=== PATIENT | male | born 1975 | race Caucasian/White ===

== ENCOUNTER 2017-05-11 21:40 | Emergency (ER) | payer MEDICAID ==
[~2017-05-11] VITALS: Ht 182.9 cm; Wt 83.9 kg
[~2017-05-11 21:40] MED LIST: KEFLEX 500MG.500 MG PO; MEDROL 4MG. DOSE4 MG PO; PERCOCET 5/3251 EACH PO; ZANTAC 300300 M1 PO
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
[2017-05-11] MEDS ORDERED: Mobic7.5 MG PO (23:28)
[2017-05-11 23:43] VITALS: BP 196/82
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
== END 2017-05-11 23:44 | disposition home or self-care (01) ==
LOC: ER 21:40
DX: S20.211A Contusion of right front wall of thorax, initial encounter (principal); S73.102A Unspecified sprain of left hip, initial encounter; Z72.0 Tobacco use; Y04.0XXA Assault by unarmed brawl or fight, initial encounter

== ENCOUNTER 2017-05-27 00:23 | Emergency (ER) | payer MEDICAID ==
[~2017-05-27] VITALS: Ht 182.9 cm; Wt 81.6 kg
[~2017-05-27 00:23] MED LIST changes: +Mobic7.5 MG PO
[2017-05-27 00:51] LABS: HEMOGLOBIN 15.9 g/dL (14.1-18.0)
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
[2017-05-27 02:37] LABS: URINE BILIRUBIN - DIPSTICK NEGATIVE (NEG); URINE BLOOD NEGATIVE (NEG)
[2017-05-27 02:49] LABS: AMPHETAMINES/METAMPHETAMINES NEGATIVE ng/mL (<1000)
[2017-05-27 02:59] LABS: NEUTROPHILS 76 % (42-76)
[2017-05-27] MEDS ORDERED: KEFLEX 500MG.500 MG PO (03:20)
[2017-05-27 03:36] VITALS: BP 151/90
--- NOTE | 2017-05-27 05:19 | RADIOLOGY REPORT PS360 ---
HIP RT 2-3V W/PELVIS IF PERFOR HISTORY: C/O RIGHT HIP PAIN ORDERING PHYSICIAN: Suma Sharif MD PATIENT AGE: 41 years COMPARISON: 05/11/2017 FINDINGS: No fracture or dislocation is evident. No significant degenerative change. No lytic or blastic change. Unremarkable soft tissues IMPRESSION: Negative hip
--- NOTE | 2017-05-27 05:21 | RADIOLOGY REPORT PS360 ---
CHEST-AP VIEW ONLY HISTORY: Overdose, chest pain C/O RIGHT HIP PAIN ORDERING PHYSICIAN: Suma Sharif MD PATIENT AGE: 41 years COMPARISON: 05/11/2017 FINDINGS: There are low lung volumes with mild prominence of the cardiac silhouette and vascular crowding. No lobar consolidation or collapse. No evidence of pneumothorax. No acute bony anomalies. IMPRESSION: Hypoventilation, no acute finding
--- NOTE | 2017-05-27 05:38 | RADIOLOGY REPORT PS360 ---
CT HEAD W/O CONTRAST HISTORY: HEADACHE, SWELLING ABOVE RIGHT EYE ORDERING PHYSICIAN: Suma Sharif MD PATIENT AGE: 41 years COMPARISON: None TECHNIQUE: Axial images obtained without contrast. Brain and bone windows reviewed. FINDINGS: No midline shift, mass effect, intracranial hemorrhage, hydrocephalus, or extra-axial fluid collection is evident. There is mild right periorbital soft tissue swelling The calvarium has an unremarkable appearance. No mastoid effusion. The visualized paranasal sinuses are unremarkable. IMPRESSION: 1. No acute finding. 2. Mild right periorbital soft tissue swelling
--- NOTE | 2017-05-27 05:42 | RADIOLOGY REPORT PS360 ---
CT CERVICAL SPINE W/O CONT INDICATION: Neck pain NECK PAIN ORDERING PHYSICIAN: Suma Sharfi MD PATIENT AGE: 41 years COMPARISON: None TECHNIQUE: Axial images are obtained without contrast. Sagittal and coronal reformatted images are reviewed as well. FINDINGS: There is normal alignment. No fracture or dislocation. There is straightening of the cervical lordosis. Degenerative disc disease with minimal endplate osteophytes and mild left foraminal narrowing C5-C6. Degenerative disc disease with small endplate osteophytes at canal stenosis C6-C7 with moderate left-sided foraminal narrowing from uncovertebral hypertrophy. Lung apices are clear. Scattered small lymph nodes are present in the neck IMPRESSION: 1. No acute fracture. 2. Cervical spondylosis with degenerative disc disease C5-C6 and C6-C7 and left-sided foraminal narrowing with canal stenosis at C6-C7
--- NOTE | 2017-05-27 05:46 | RADIOLOGY REPORT PS360 ---
CT CHEST W/O CONTRAST HISTORY: Chest pain, abnormal radiograph PAIN ORDERING PHYSICIAN: Suma Sharif MD PATIENT AGE: 41 years TECHNIQUE: Helical acquisition obtained without contrast. Axial, sagittal, and coronal reformatted images are generated and reviewed. COMPARISON: Radiograph same day FINDINGS: No obvious mediastinal mass or hilar adenopathy. Normal heart size. No obvious pericardial effusion. There is gynecomastia. Calcified granuloma is present in the left lower lobe. Lungs are clear otherwise. No acute bony anomalies. Upper abdominal images are unremarkable. IMPRESSION: No acute findings. Negative unenhanced CT chest Old granulomatous disease
--- NOTE | 2017-05-27 05:49 | RADIOLOGY REPORT PS360 ---
CT EXT.LOWER-RT-W/O CONTRAST INDICATION: Right hip pain PAIN ORDERING PHYSICIAN: Suma Sharif MD PATIENT AGE: 41 years COMPARISON: None TECHNIQUE: Axial images are obtained without contrast. Sagittal and coronal reformatted images are reviewed as well. FINDINGS: No fracture or dislocation. No soft tissue mass or abscess. Dental note is made of a small cortical defect involving the right femoral neck anteriorly at the subcapital region. Minimal subcortical cystic change noted at the inferior aspect of the SI joint anteriorly. IMPRESSION: No acute finding. 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
[2017-05-28 10:37] LABS: HBsAg Screen Negative (Negative); Hep A Ab, IgM Negative (Negative); Hep B Core Ab, IgM Negative (Negative); Hep C Virus Ab <0.1 (0.0-0.9)
== END 2017-05-27 03:37 | disposition home or self-care (01) ==
LOC: ER 00:23
PROVIDERS: Emergency Medicine
DX: F11.90 Opioid use, unspecified, uncomplicated (principal); J40 Bronchitis, not specified as acute or chronic; F14.10 Cocaine abuse, uncomplicated; M25.551 Pain in right hip; D72.829 Elevated white blood cell count, unspecified; F17.210 Nicotine dependence, cigarettes, uncomplicated; S50.312A Abrasion of left elbow, initial encounter; X58.XXXA Exposure to other specified factors, initial encounter
CPT/HCPCS: J2310

== ENCOUNTER 2017-06-21 05:50 | Emergency (ER) | payer OTHER ==
[~2017-06-21] VITALS: Ht 182.9 cm; Wt 83.9 kg
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
[2017-06-21 08:57] LABS: LYMPH # 1.8 K/mm3 (0.7-4.5); LYMPH % 8.9 % (10-50)
[2017-06-21 09:08] LABS: HEMOGLOBIN 13.8 g/dL (14.1-18.0)
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
[2017-06-21 09:31] LABS: NEUTROPHILS 77 % (42-76)
[2017-06-21 09:39] VITALS: BP 142/89
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
--- OUTSIDE RECORDS SUMMARY | 2017-07-01 02:35 | External Medical Summary Rpt | CCD ---
Author Author , ALEXANDER Organization ALEXANDER Address Unknown Phone [email or web address] Care Team Providers Care Repairer Pump Name Role Phone NIEVES ASHLY, NIEVES Unavailable Unavailable [facility] Unavailable Unavailable ASSOC[facility]ATES, P[facility], [facility] ARNOLD, ARNOLD Unavailable Unavailable ARNOLD, ARNOLD Unavailable Unavailable ARNOLD LA, ARNOLD Unavailable Unavailable LA ARNOLD LA, ARNOLD Unavailable Unavailable LA GRIFFIN ALL, GRIFFIN ALL Unavailable Unavailable [facility] Unavailable Unavailable [facility] Unavailable Unavailable [facility] Unavailable Unavailable [facility], [facility] SYBIL GARRET, Unavailable Unavailable SYBIL GARRET [facility], Unavailable Unavailable [facility] BRIANDA ADR, BRIANDA Unavailable Unavailable ADR [facility] Unavailable Unavailable [place], [facility] [place] RAJAT, RAJAT Unavailable Unavailable RAJAT CAROLYNE, RAJAT Unavailable Unavailable [facility] Un[facility] Unavailable INC, [facility], Unavailable Unavailable [facility] Un[facility] Unavailable [facility], [facility] Un[facility]available [facility], [facility] BEASLEY, BEASLEY Unavailable Unavailable [facility] Unavailable Unavailable SERVICES, [facility] Unavailable Unavailable [facility], [facility] PSC [facility], Unavailable Unavailable PLLC, [facility], Unavailable Unavailable [facility], Unavailable Unavailable [facility] ASHLEY, ASHLEY Unavailable Unavailable [facility] Unavailable Unavailable [id number] [address] [id number], [facility] [id number] # [id number] SADEK MOH, SADEK MOH Unavailable Unavailable SCIFRES ANG, SCIFRES Unavailable Unavailable ANG SANTOS BENY, SANTOS Unavailable Unavailable [facility], Unavailable Unavailable [facility] MURILLO DON, Unavailable Unavailable MURILLO DON MURILLO DON, Unavailable Unavailable MURILLO DON MURILLO, DON R, Unavailable Unavailable MURILLO, DON R CHOW SCO, CHOW Unavailable Unavailable SCO STRUP BRITNI, STRUP BRITNI Unavailable Unavailable HUSSEIN PHI, HUSSEIN PHI Unavailable Unavailable [facility], Unavailable Unavailable [facility] SHA, WELLS SHA Unavailable Unavailable WHITE TONE, WHITE TONE Unavailable Unavailable Purpose Continuity of Care Document - 03-12-2010 through 2016 Problems Code Diagnosis DOS Provider Status [id number] CONTUSION 05-11-2017 Y[facility]IRA RT FRONT PH[facility]ANS, WALL THORAX PLLC INITIAL ENCOUNTER [id number] UNSPECIFIED 05-11-2017 [facility] SPRAIN OF PHYSICIANS, LEFT HIP PLLC INITIAL ENCOUNTER D2230 MELANOCYTIC 01-28-2017 [facility] NEVI OF PHYSICIANS UNSPECIFIED GROUP PART OF FACE D0330 MELANOMA IN 12-07-2016 ARNOLD SITU OF UNSPECIFIED PART OF FACE G8929 OTHER 11-05-2016 [facility] CHRONIC PHYSICIANS PAIN GROUP [id number] PRIMARY 11-05-2016 [facility] OSTEOARTHRI PHYSICIANS TIS GROUP UNSPECIFIED SHOULDER [id number] PAIN IN 11-05-2016 [facility] LEFT PHYSICIANS SHOULDER GROUP H06694 UNS ROT 11-05-2016 [facility] CUFF PHYSICIANS TEAR/RUPT GROUP LT SHLDR NOT SPEC TRAUMAT [id number] UNS INJURY 11-05-2016 [facility] LT SHOULDER PHYSICIANS UPPER ARM GROUP INITIAL ENCNTR J44993 PAIN IN 10-13-2016 ARNOLD UNSPECIFIED SHOULDER L0390 CELLULITIS 08-25-2016 ARNOLD LA UNSPECIFIED [id number] INSECT BITE 05-21-2016 [facility], NONVENOMOUS PLLC RT HAND INITIAL ENC [id number] TOXIC 05-21-2016 [facility]PS INC ACCIDENTAL INITIAL ENC 13497 PAIN IN 05-29-2014 [facility] JOINT, LOWER LEG 18555 PAIN IN 05-29-2014 [place] [facility], MEDICAL ANKLE AND IMAGING ASS FOOT 96032 UNSPECIFIED 05-29-2014 [facility] SITE OF N EMERGENCY ANKLE PHYS SPRAIN AND STRAIN E8888 OTHER FALL 05-29-2014 [facility] V700 ROUTINE 01-23-2013 [facility] GENERAL PHYSICIANS MEDICAL GROUP EXAM@HEALTH CARE FACL V5832 ENCOUNTER 12-05-2012 [facility] FOR REMOVAL DON OF SUTURES 2165 BENIGN 11-23-2012 [facility] NEOPLASM OF DON SKIN OF TRUNK EXCEPT SCROTUM 2298 BENIGN 11-23-2012 [facility] OTHER SPECIFIED SITES 2399 NEOPLASM OF 11-23-2012 [facility] UNSPECIFIED NATURE SITE UNSPECIFIED 2388 NEOPLASM 10-12-2012 [facility] UNCERTAIN DON BEHAVIOR OTHER SPEC SITES 40393 CONDYLOMA 06-29-2011 [facility] 6089 UNSPECIFIED 06-29-2011 NEW DISORDER [place] OF MALE CLINIC [facility] GENITAL ORGANS 53195 ABDOMINAL 06-29-2011 NEW PAIN, [place] UNSPECIFIED CLINIC [facility] SITE 2382 NEOPLASM OF 06-05-2011 NEW UNCERTAIN [place] BEHAVIOR OF CLINIC [facility] SKIN 7099 UNSPECIFIED 06-05-2011 [facility] DISORDER [facility], OF [facility] SKIN&SUBCUT ANEOUS TISSUE 15914 OTHER 05-16-2011 [facility] SPECIFIED DON DISORDER OF MALE GENITAL ORGANS V6759 OTHER 04-06-2011 [facility] EXAMINATION OTHER 91381 UNSPECIFIED 01-29-2011 [facility] ORCHITIS SERV AND FOUND[facility] EPIDIDYMITI S 20042 EDEMA OF 01-15-2011 [place] [facility] MALE SERV GENITAL [facility]OUND[facility] ORGANS 7899 OTHER 01-07-2011 [place] [facility] SYMPTOMS SERV INVOLVING [facility]OUNDAT[facility] ABDOMEN AND PELVIS 20084 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-2010 [place] [facility] LUMBAR/LUMB SERV OSACRAL FOUNDATIO INTERVERTEB RAL DISC 3671 MYOPIA 11-01-2010 [facility] 70075 PAIN IN 09-26-2010 [place] [facility] PELVIC IMAGING ASS REGION AND THIGH 7242 LUMBAGO 09-26-2010 [facility] INC 76859 ABDOMINAL 09-26-2010 [facility] PAIN RIGHT [facility] LOWER INC QUADRANT 7295 PAIN IN 09-09-2010 [place] SOFT MEDICAL TISSUES OF IMAGING ASS LIMB V2509 OTH GENERAL 09-02-2010 [facility] CNSL&ADVICE PSC CONTRACEPT MANAGEMENT 7231 CERVICALGIA 08-08-2010 [facility] 6010 ACUTE 08-06-2010 [place] PROSTATITIS [place] 82571 PAIN IN 08-06-2010 [facility] JOINT, DON SHOULDER REGION 7245 UNSPECIFIED 08-06-2010 [facility] BACKACHE DON 9104 E 05-11-2010 [facility] NCK[facility]SCL[facility] NO [facility] EYE INSECT INC BITE NONVNOM W/O INF 9105 [facility] 05-11-2010 [facility] EMERGENCY NO EYE SERVICES INSECT BITE NONVENOM INF Medications Na ND Rx Da Fi Fi Am Da Di Ph RX Ph St me C No te ll ll ou ys ag ar # ys at rm s nt no ma ic us Or Da si cy ia de te s n re d ME 61 08 09 10 10 00 EA Ac LO 44 -2 -[address] ti XI 20 3- 2- 00 00 SI ve CA 12 20 20 49 DE M 60 17 17 88 7. 1 95 PH 5 AR MG MA CY TA BL OF ET CY NT HI AN A IN C CE 65 12 01 40 10 00 EA Ac PH 86 -0 -[address] ti AL 20 6- 9- 00 00 SI ve EX 01 20 20 46 DE IN 90 16 17 79 5 22 PH 50 AR 0 MA MG CY CA OF PS CY UL NT E HI AN A IN C 00 09 09 0 24 6 EA 24 SL Ac 59 -1 -[address] 12 AB ti 10 6- 6- 00 SI 85 AU ve 38 20 20 DE GH 50 11 11 1 PH TH AR OM MA CY K OF CY NT HI AN A NA 00 09 09 2 60 30 EA 23 SL Ac BU 18 -0 -[address] 98 AB ti ME 50 6- 6- 00 SI 50 AU ve TO 14 20 20 DE GH NE 50 11 11 1 PH JR 50 AR 0 MA TH MG CY OM TA OF K BL ET CY NT HI AN A ME 64 05 07 1 90 30 EA 22 VE Ac TA 72 -1 -[address] 52 NK ti XA 00 3- 5- 00 SI 17 AT ve LO 32 20 20 DE ES NE 11 11 11 H 0 PH RA 80 AR MA 0 MA KR MG CY IS HN TA OF A BL ET CY NT HI AN A 00 05 07 1 30 30 EA 22 VE Ac 37 -1 -[address] 52 NK ti 81 3- 5- 00 SI 18 AT ve 06 20 20 DE ES 60 11 11 H 1 PH RA AR MA MA KR CY IS HN OF A CY NT HI AN A CY 00 04 06 1 30 10 EA 22 VE Ac CL 37 -2 -[address] 33 NK ti OB 80 8- 6- 00 SI 73 AT ve EN 75 20 20 DE ES ZA 11 11 11 H TN 0 PH RA IN AR MA E MA KR 10 CY IS HN MG OF A TA CY BL NT ET HI AN A TR 65 05 05 1 80 20 EA 22 No Ac AM 16 -1 -[address] 52 t ti AD 20 3- 3- 00 SI 20 Av ve OL 62 20 20 DE ai 71 11 11 la HC 1 PH bl L AR e 50 MA CY MG OF TA BL CY ET NT HI AN A ME 64 05 05 1 90 30 EA 22 VE Ac TA 72 -1 -[address] 52 NK ti XA 00 3- 3- 00 SI 17 AT ve LO 32 20 20 DE ES NE 11 11 11 H 0 PH RA 80 AR MA 0 MA KR MG CY IS HN TA OF A BL ET CY NT HI AN A 00 05 05 1 30 30 EA 22 VE Ac 37 -1 -[address] 52 NK ti 81 3- 3- 00 SI 18 AT ve 06 20 20 DE ES 60 11 11 H 1 PH RA AR MA MA KR CY IS HN OF A CY NT HI AN A TR 65 04 04 0 80 10 EA 22 VE Ac AM 16 -2 -[address] 33 NK ti AD 20 8- 0- 00 SI 72 AT ve OL 62 20 20 DE ES 71 11 11 H HC 1 PH RA L AR MA 50 MA KR CY IS MG HN OF A TA BL CY ET NT HI AN A CY 00 04 04 1 30 10 EA 22 VE Ac CL 37 -2 -[address] 33 NK ti OB 80 8- 0- 00 SI 73 AT ve EN 75 20 20 DE ES ZA 11 11 11 H TN 0 PH RA IN AR MA E MA KR 10 CY IS HN MG OF A TA CY BL NT ET HI AN A 00 04 04 0 30 30 EA 22 VE Ac 37 -2 -[address] 33 NK ti 81 8- 0- 00 SI 74 AT ve 08 20 20 DE ES 90 11 11 H 1 PH RA AR MA MA KR CY IS HN OF A CY NT HI AN A BOUDREAUX 53 04 04 0 42 21 EA 22 VE Ac LF 74 -2 -[address] 19 NK ti AM 60 0- 0- 00 SI 42 AT ve ET 27 20 20 DE ES HO 20 11 11 H XA 5 PH RA ZO AR MA LE MA KR -T CY IS MP HN OF A DS CY TA NT BL HI ET AN A BA 16 04 04 1 60 30 EA 22 VE Ac CL 71 -2 -[address] 19 NK ti OF 40 0- 0- 00 SI 43 AT ve EN 07 20 20 DE ES 10 11 11 H 10 6 PH RA AR MA MG MA KR CY IS TA HN BL OF A ET CY NT HI AN A TR 65 04 04 1 60 15 EA 22 VE Ac AM 16 -2 -[address] 19 NK ti AD 20 0- 0- 00 SI 44 AT ve OL 62 20 20 DE ES 71 11 11 H HC 1 PH RA L AR MA 50 MA KR CY IS MG HN OF A TA BL CY ET NT HI AN A 00 03 03 [address] Ac 59 -2 -[address] 87 EP ti 10 8- 8- 00 SI 53 HE ve 38 20 20 DE NS 50 11 11 1 PH KE AR MA N CY C OF CY NT HI AN A AM 00 03 03 0 [address] Ac OX 09 -2 -[address] 87 EP ti -C 32 8- 8- 00 SI 54 HE ve LA 27 20 20 DE NS V 53 11 11 87 4 PH KE 5- AR 12 MA N 5 CY C MG OF TA BL CY ET NT HI AN A AM 00 03 03 0 30 10 EA 21 No Ac OX 78 -2 -[address] 78 t ti IC 12 1- - 00 SI 08 Av ve IL 61 20 20 DE ai LI 30 11 11 la N 5 PH bl 50 AR e 0 MA MG CY CA OF PS UL CY E NT HI AN A GA 16 02 02 3 90 30 EA 21 TI Ac BA 71 -1 -[address] 30 BB ti PE 40 8- 8- 00 SI 68 S ve NT 66 20 20 DE PH IN 20 11 11 IL 1 PH LI 30 AR P 0 MA A MG CY CA OF PS UL CY E NT HI AN A CY 00 01 02 1 90 30 EA 20 AD Ac CL 37 -1 -[address] 86 KI ti OB 80 8- 8- 00 SI 26 NS ve EN 75 20 20 DE ZA 11 11 11 TI TN 0 PH MO IN AR TH E MA Y 10 CY D MG OF TA CY BL NT ET HI AN A CY 00 01 01 1 90 30 EA 20 AD Ac CL 37 -1 -[address] 86 KI ti OB 80 8- 8- 00 SI 26 NS ve EN 75 20 20 DE ZA 11 11 11 TI TN 0 PH MO IN AR TH E MA Y 10 CY D MG OF TA CY BL NT ET HI AN A 00 01 01 0 49 12 EA 20 AD Ac 59 -0 -[address] 66 KI ti 10 4- 4- 00 SI 94 NS ve 38 20 20 DE 50 11 11 TI 1 PH MO AR TH MA Y CY D OF CY NT HI AN A NA 00 12 12 1 60 30 EA 20 AD Ac BU 18 -1 -[address] 39 KI ti ME 50 4- 4- 00 SI 39 NS ve TO 14 20 20 DE NE 50 10 10 TI 1 PH MO 50 AR TH 0 MA Y MG CY D TA OF BL ET CY NT HI AN A 00 12 12 0 20 5 EA 20 AD Ac 59 -1 -[address] 39 KI ti 10 4- 4- 00 SI 40 NS ve 38 20 20 DE 50 10 10 TI 1 PH MO AR TH MA Y CY D OF CY NT HI AN A TR 65 11 11 [address] Ac AM 16 -1 -[address] 06 EP ti AD 20 9- 9- 00 SI 05 HE ve OL 62 20 20 DE NS 71 10 10 HC 1 PH DO L AR N 50 MA R CY MG OF TA BL CY ET NT HI AN A BOUDREAUX 53 11 11 [address] Ac LF 74 -1 -[address] 03 EP ti AM 60 7- 7- 00 SI 58 HE ve ET 27 20 20 DE NS HO 20 10 10 XA 5 PH DO ZO AR N LE MA R -T CY MP OF DS CY TA NT BL HI ET AN A IB 53 11 11 0 [address] Ac UP 74 -1 -[address] 03 EP ti RO 60 7- 7- 00 SI 59 HE ve FE 46 20 20 DE NS N 50 10 10 60 5 PH DO 0 AR N MG MA R CY TA BL OF ET CY NT HI AN A ME 00 08 08 0 21 6 EA 18 GA Ac TH 78 -2 -[address] 81 IN ti YL 15 3- 3- 00 SI 72 EY ve TN 02 20 20 DE ED 20 10 10 VA NI 7 PH CH SO AR AE LO MA L NE CY S 4 OF MG CY DO NT SE HI PK AN A CE 00 08 08 0 21 7 EA 18 GA Ac PH 09 -2 -[address] 81 IN ti AL 33 3- 3- 00 SI 73 EY ve EX 14 20 20 DE IN 70 10 10 VA 5 PH CH 50 AR AE 0 MA L MG CY S CA OF PS UL CY E NT HI AN A BOUDREAUX 53 08 08 [address] Ac LF 74 -0 -[address] 62 EP ti AM 60 6- 6- 00 SI 10 HE ve ET 27 20 20 DE NS HO 20 10 10 XA 5 PH DO ZO AR N LE MA R -T CY MP OF DS CY TA NT BL HI ET AN A NA 00 06 06 3 [address] Ac TN 09 -2 -2 .0 TE 91 EP ti OX 30 3- 3- 00 87 HE ve EN 14 20 20 AI NS 90 10 10 D 50 1 PH DO 0 AR N MG MA R CY TA BL 03 ET 93 8 # 03 93 CI 65 06 [address] Ac TN 86 -2 -2 .0 TE 91 EP ti OF 20 3 88 HE ve LO 07 20 20 AI NS XA 70 10 10 D CI 1 PH DO N AR N HC MA R L CY 50 0 03 MG 93 8 TA # B 03 93 Procedures Procedure DOS Code Location Performer Comment RADEX 84622 [place] GRIFFIN ALL SHOULDER 6 MEDICAL COMPLETE IMAGING MINIMUM 2 ASS VIEWS THERAPEUT 84209 [facility] MUELLER IC 6 [facility] PROPHYLAC INC INC TIC/DX INJECTION SUBQ/IM CRTCHS E0114 [facility] UNDARM 4 OTH THAN WOOD PAIR PAD TIP&HNDGR IP ANKLE L4350 [facility] CONTROL 4 ORTHOSIS STIRRUP STYL RIGID PREFAB RADEX 58107 [place] SYBIL ANKLE 4 MEDICAL GARRET COMPLETE IMAGING MINIMUM 3 [place] [address] [facility] SURG 3 DIAGNOSTI DIAGNOSTI PATHOLOGY CS GROSS&CAROLYNE ROSCOPIC EXAM EXC B9 16404 [facility] MURILLO LESION 3 DON DON MRGN XCP SK TG T/A/L 0.5 CM/< URNLS DIP 34161 [place] 1 [facility] STICK/TAB CLINIC LET P[place] [address] [place] SUR[facility] 1 [place] [facility] PATHOLOGY CLINIC [facility] GROSS&CAROLYNE ROSCOPIC EXAM EXC B9 78428 [place] LESION 1 [facility] MRGN XCP CLINIC SK TG PSC T/A/L 2.1-3.0 CM EXC B9 13767 [place] LESION 1 [facility] MRGN XCP CLINIC SK TG PSC T/A/L >4.0 CM DSTRJ 51077 [place] LESION 1 [facility] PENIS CLINIC EXTENSIVE PSC ANESTHESI 95860 ANESTHESI WHITE TONE A MALE 1 A GENITALIA ASSOCIATE INCL S, PSC OPEN URETHRAL PX URNLS DIP 86256 [facility] 1 [place] THO STICK/TAB CLINIC LET PSC REAGENT AUTO MICROSCOP Y DUP-SCAN 71768 YOGESH LAMAR ARTL MARIBEL 1 MEDICAL ADR ABDL/PEL/ SERV SCROT&/[place] [address] YOGESH LAMAR SCROTUM & 1 [place] [address] YOGESH CHOW SCROTUM & 1 MEDICAL SCO CONTENTS SERV FOUNDATIO DUP-SCAN 46875 YOGESH CHOW ARTL MARIBEL 1 MEDICAL SCO ABDL/PEL/ SERV SCROT&/RP FOUNDATIO R ORGN COM OPHTH 83906 TELLO DE LEON MEDICAL 1 VISION ANG XM&EVAL COMPRE NEW PT 1/> VST MRI 30243 [facility]LLER PELVIS 1 [facility] W/O INC INC CONTRAST MATERIAL MRI 09517 [facility] M[facility] SPINAL 1 [facility] CANAL INC INC LUMBAR W/O CONTRAST MATERIAL CT PELVIS 91779 [facility] AIM 0 [facility] W/CONTRAS INC INC T MATERIAL 3D 26785 [facility] MAGALLANESON RENDERING 0 [facility] INC INC W/INTERP& POSTPROC DIFF WORK STATION RADEX 67708 [place] SYBIL SPINE 0 MEDICAL GARRET CERVICAL IMAGING 4 OR 5 ASS VIEWS RADEX 25112 [facility] M[facility]LLER SPINE 0 [facility] CERVICAL INC INC 6 OR MORE VIEWS Encounters Encounter Start End Date Code Location Performer Type Date EMERGENCY 36173 YAJAIRA EARL 7 7 PHYSICIAN DEPARTMEN S, PLLC T VISIT HIGH/URGE NT SEVERITY OFFICE 35691 [facility] GALE [place] 7 7 PHYSICIAN T VISIT S GROUP 15 MINUTES OFFICE 11978 KYLIE [place] 7 7 T VISIT 15 MINUTES OFFICE 95378 [facility] ASHLEYEDUARDA NUNEZEN 7 7 PHYSICIAN T NEW 30 S GROUP MINUTES OFFICE 24900 ARNOLD ARNOLD OUTPATIEN 7 7 T VISIT 15 MINUTES OFFICE 29840 KYLIE ESPINAL OUTPATIEN 6 6 LA LA T VISIT 15 MINUTES EMERGENCY [address] [facility] 6 6 PH[facility] H[facility]URGE [facility] SEVERITY HOSPITAL AMI - 6 6 [facility] OUTPATIEN INC T EMERGENCY 65901 AMI 6 6 [facility] DEPARTMEN INC T VISIT LOW/MODER SEVERITY EMERGENCY 78745 KIT [facility] 4 4 SHANNAN DEPARTMEN EMERGENCY T VISIT PHYS HIGH/URGE NT SEVERITY INITIAL 01989 [facility] PREVENTIV 3 3 PHYSICIAN E S GROUP MEDICINE NEW PT AGE 18-39YRS OFFICE 46823 M[facility] MURILLO OUTPATIEN 3 3 DON DON T VISIT 15 MINUTES OFFICE 12990 MUR[facility]O MURILLO OUTPATIEN 3 3 DON DON T VISIT 15 MINUTES OFFICE 47260 [place] OUTPATIEN 1 1 [facility] T VISIT CLINIC 25 PSC MINUTES OFFICE 20929 [facility] T VISIT CLINIC 25 PSC MINUTES OFFICE 90109 MURILLO MURILLO OUTPATIEN 1 1 DON DON T VISIT 15 MINUTES HOSPITAL UNIVERSIT - 1 1 [facility] T OFFICE 65689 [place] STRUP BRITNI OUTPATIEN 1 1 MEDICAL T VISIT SERV 15 FOUNDATIO MINUTES OFFICE 23115 [place] [facility]UP [facility] OUTPATIEN 1 1 MEDICAL T VISIT SERV 15 FOUNDATIO MINUTES HOSPITAL UNIVERSIT - 1 1 [facility] T OFFICE 92258 [place] STRUP BRIT[facility] OUTPATIEN 1 1 MEDICAL T NEW 30 SERV MINUTES FOUNDAT[facility] OFFICE 74755 [place] HUSSEIN PHI CONSULTAT 1 1 MEDICAL ION SERV NEW/ESTAB FOUNDATIO PATIENT 40 MIN [facility] AMI - 1 1 [facility] H[facility] OUTPATIEN INC T OFFICE 92318 AMI AGEEKINS OUTPATIEN 1 1 [facility] 10 HOSPITAL MINUTES [facility] AMI - 0 0 [facility] H[facility] OUTPATIEN INC T OFFICE 48435 [facility] OUTPATIEN 0 0 [facility] [address] [facility] AMI - 0 0 [facility] OUTPATIEN INC T OFFICE 94168 CHIDI MURILLO OUTPATIEN 0 0 DON DON T VISIT 15 MINUTES EMERGENCY 26310 AMI 0 0 [facility] DEPARTMEN INC T VISIT LOW/MODER SEVERITY EMERGENCY 55056 [facility] EARL 0 0 EMERGENCY CARLOYNE DEPARTMEN SERVICES T VISIT MODERATE SEVERITY HOSPITAL AMI - 0 0 [facility] OUTPATIEN INC T OFFICE 07961 CHIDI MURILLO OUTPATIEN 0 0 DON DON T VISIT 15 MINUTES OFFICE 44931 CHIDI MURILLO, OUTPATINATHEN 0 0 DON R DON R T VISIT 25 MINUTES
--- OUTSIDE RECORDS SUMMARY | 2017-07-01 02:35 | External Medical Summary Rpt | CCD ---
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 Unavailable Unavailable [facility] Unavailable Unavailable [facility] Unavailable Unavailable [facility], [facility] SYBIL GARRET, Unavailable Unavailable SYBIL GARRET [facility], Unavailable Unavailable [facility] BRIANDA ADR, BRIANDA Unavailable Unavailable ADR [facility] Unavailable [place]available [place], [facility] [place] RAJAT, RAJAT Unavailable Unavailable RAJAT CAROLYNE, RAJAT Unavailable Unavailable [facility] Un[facility] Un[facility] INC, [facility], Unavailable Unavailable [facility] Unavailable Unavailable [facility], [facility] Unavailable Unavailable [facility], [facility] BEASLEY, BEASLEY Unavailable Unavailable [facility] Unavailable Unavailable SERVICES, [facility] Unavailable Unavailable [facility] PSC [facility], Unavailable Unavailable PLLC, [facility], [facility]available Unavailable [facility], Unavailable Unavailable [facility] ASHLEY, ASHLEY Unavailable Unavailable [facility] Unavailable Unavailable [id number] [address] [id number], [facility] [id number] # [id number] SADEK MOH, SADEK MOH Unavailable [...] Unavailable HUSSEIN PHI, [facility] PHI Unavailable Unavailable [facility], Unavailable Unavailable [facility], [facility] Unavailable Unavailable [facility], [facility] Unavailable Unavailable Purpose Continuity of Care Document - 03-12-2010 through 2016 Problems Code Diagnosis DOS Provider Status [id number] CONTUSION 05-11-2017 [facility] RT FRONT PHYSICIANS, WALL THORAX PLLC INITIAL ENCOUNTER [id number] UNSPECIFIED 05-11-2017 [facility] SPRAIN OF PHYSICIANS, LEFT HIP PLLC INITIAL ENCOUNTER D2230 MELANOCYTIC 01-28-2017 [facility] NEVI OF PHYSICIANS UNSPECIFIED GROUP PART OF FACE D0330 MELANOMA IN 12-07-2016 ARNOLD SITU OF UNSPECIFIED PART OF FACE G8929 OTHER 11-05-2016 [facility] CHRONIC PHYSICIANS PAIN GROUP B67954 PRIMARY 11-05-2016 [facility] OSTEOARTHRI PHYSICIANS TIS GROUP UNSPECIFIED SHOULDER B40719 PAIN IN 11-05-2016 [facility] LEFT PHYSICIANS SHOULDER GROUP Q89328 UNS ROT 11-05-2016 [facility] CUFF PHYSICIANS TEAR/RUPT GROUP LT SHLDR NOT SPEC TRAUMAT [id number] UNS INJURY 11-05-2016 [facility] LT SHOULDER PHYSICIANS UPPER ARM GROUP INITIAL ENCNTR Q49751 PAIN IN 10-13-2016 ARNOLD UNSPECIFIED SHOULDER L0390 CELLULITIS 08-25-2016 ARNOLD LA UNSPECIFIED [id number] INSECT BITE 05-21-2016 [facility], NONVENOMOUS PLLC RT HAND INITIAL ENC [id number] TOXIC 05-21-2016 [facility] VENOM WASPS INC ACCIDENTAL INITIAL ENC 28487 PAIN IN 05-29-2014 [facility] JOINT, LOWER LEG 26009 PAIN IN 05-29-2014 [place] [facility], MEDICAL ANKLE AND IMAGING ASS FOOT 15115 UNSPECIFIED 05-29-2014 [facility] SITE OF N EMERGENCY ANKLE PHYS SPRAIN AND STRAIN E8888 OTHER FALL 05-29-2014 [facility] PH[facility] V700 ROUTINE 01-23-2013 [facility] GENERAL PHYSICIANS MEDICAL GROUP EXAM@HEALTH CARE FACL V5832 ENCOUNTER 12-05-2012 [facility] FOR REMOVAL DON OF SUTURES 2165 BENIGN 11-23-2012 [facility] NEOPLASM OF DON SKIN OF TRUNK EXCEPT SCROTUM 2298 BENIGN 11-23-2012 [facility] OTHER SPECIFIED SITES 2399 NEOPLASM OF 11-23-2012 [facility] UNSPECIFIED NATURE SITE UNSPECIFIED 2388 NEOPLASM 10-12-2012 [facility] UNCERTAIN DON BEHAVIOR OTHER SPEC SITES 41647 CONDYLOMA 06-29-2011 [facility] 6089 UNSPECIFIED 06-29-2011 NEW DISORDER [place] [facility] GENITAL ORGANS 54896 ABDOMINAL 06-29-2011 NEW [place], [place] UNSPECIFIED CLINIC [facility] SITE 2382 NEOPLASM OF 06-05-2011 NEW UNCERTAIN [place] BEHAVIOR OF CLINIC [facility] SKIN 7099 UNSPECIFIED 06-05-2011 [facility], OF [facility] SKIN&SUBCUT ANEOUS TISSUE 26165 OTHER 05-16-2011 [facility] SPECIFIED DON DISORDER OF MALE GENITAL ORGANS V6759 OTHER 04-06-2011 [facility] EXAMINATION OTHER 32793 UNSPECIFIED 01-29-2011 [facility] AND [facility] EPIDIDYMITI S 55379 EDEMA OF 01-15-2011 [facility] GENITAL [facility] ORGANS 7899 OTHER 01-07-2011 [place] [facility] SYMPTOMS SERV INVOLVING [facility] ABDOMEN AND PELVIS 30815 DEGEN 11-06-2010 [facility] LUMBAR/LUMB SERV OSACRAL [facility] INTERVERTEB RAL DISC 3671 MYOPIA 11-01-2010 [facility] 60125 PAIN IN 09-26-2010 [place] [facility] PELVIC IMAGING ASS REGION AND THIGH 7242 LUMBAGO 09-26-2010 [facility] INC 71547 ABDOMINAL 09-26-2010 [facility] PAIN RIGHT [facility] LOWER INC QUADRANT 7295 PAIN IN 09-09-2010 [place] SOFT MEDICAL TISSUES OF IMAGING ASS LIMB V2509 OTH GENERAL 09-02-2010 [facility] CNSL&ADVICE PSC CONTRACEPT MANAGEMENT 7231 CERVICALGIA 08-08-2010 [facility] 6010 ACUTE 08-06-2010 [facility] PROSTATITIS DON 35762 PAIN IN 08-06-2010 [facility] JOINT, DON SHOULDER REGION 7245 UNSPECIFIED 08-06-2010 [facility] BACKACHE DON 9104 E 05-11-2010 [facility] NCK&SCLP NO [facility] EYE INSECT INC BITE NONVNOM W/O INF 9105 [facility] [place] [place] 05-11-2010 [facility] NECK&SCLP EMERGENCY NO EYE SERVICES [...] DE ES ZA 11 11 11 H MD 0 PH RA IN AR MA E [...] DE ES ZA 11 11 11 H MD 0 PH RA IN AR MA E [...] 20 DE ZA 11 11 11 TI MD 0 PH MO IN AR TH E MA Y 10 CY D MG OF TA CY BL NT ET HI AN A CY 00 01 01 1 90 30 EA 20 AD Ac CL 37 -1 -[address] 86 KI ti OB 80 8- 8- 00 SI 26 NS ve EN 75 20 20 DE ZA 11 11 11 TI MD 0 PH MO IN AR TH E [...] 3- 3- 00 SI 72 EY ve MD 02 20 20 DE ED 20 10 10 PA NI 7 PH CH SO AR AE LO MA L NE CY S 4 OF MG CY DO NT SE HI PK AN A CE 00 08 08 0 21 7 EA 18 GA Ac PH 09 -2 -[address] 81 IN ti AL 33 3- 3- 00 SI 73 EY ve EX 14 20 20 DE IN 70 10 10 PA 5 PH CH 50 AR AE 0 [...] 3 [address] Ac MD 09 -2 -2 .0 TE 91 EP ti OX 30 3- 3- 00 87 HE ve EN 14 20 20 AI NS 90 10 10 D 50 1 PH DO 0 AR N MG MA R CY TA BL 03 ET 93 8 # 03 93 CI 65 06 06 [address] Ac MD 86 -2 -2 .0 TE 91 EP ti OF 20 3 88 HE ve LO 07 20 20 AI NS XA 70 10 10 D CI 1 PH DO N AR N HC MA R L CY 50 0 03 MG 93 8 TA # B 03 93 Procedures Procedure DOS Code Location Performer Comment RADEX 88565 [place] GRIFFIN ALL SHOULDER 6 MEDICAL COMPLETE IMAGING MINIMUM 2 ASS VIEWS THERAPEUT 68443 [facility] MUELLER IC 6 [facility] PROPHYLAC INC INC TIC/DX INJECTION SUBQ/IM CRTCHS E0114 [facility] UNDARM 4 OTH THAN WOOD PAIR PAD TIP&HNDGR IP ANKLE L4350 [facility] CONTROL 4 ORTHOSIS STIRRUP STYL RIGID PREFAB RADEX 92567 [place] SYBIL ANKLE 4 MEDICAL GARRET COMPLETE IMAGING MINIMUM 3 [place] [address] [facility] SURG 3 DIAGNOSTI DIAGNOSTI PATHOLOGY CS GROSS&CAROLYNE ROSCOPIC EXAM EXC B9 16267 [facility] MURILLO LESION 3 DON DON MRGN XCP SK TG T/A/L 0.5 CM/< URNLS DIP 25720 [place] [facility] CL[facility] LET P[place] [address] [place] SURG 1 [place] BENY PATHOLOGY CLINIC [facility] GROSS&CAROLYNE ROSCOPIC EXAM EXC B9 71405 [place] L[facility]ION 1 [facility] MR[facility] XCP CLINIC SK TG PSC T/A/L 2.1-3.0 CM EXC B9 86218 [place] L[facility]ION 1 [facility] MR[facility] XCP CLINIC SK TG PSC T/A/L >4.0 CM DSTRJ 25642 [place] LESION 1 [facility] PENIS CLINIC EXTENSIVE PSC ANESTHESI 28054 ANESTHESI WHITE TONE A MALE 1 A GENITALIA ASSOCIATE INCL S, PSC OPEN URETHRAL PX URNLS DIP 04745 [facility] 1 [place] THO STICK/TAB CLINIC LET PSC REAGENT AUTO MICROSCOP Y DUP-SCAN 86255 YOGESH LAMAR ARTL MARIBEL 1 MEDICAL ADR ABDL/PEL/ SERV SCROT&/[place] [address] YOGESH LAMAR SCROTUM & 1 [place] [address] YOGESH CHOW SCROTUM & 1 MEDICAL SCO CONTENTS SERV FOUNDATIO DUP-SCAN 78807 YOGESH CHOW ARTL MARIBEL 1 MEDICAL SCO ABDL/PEL/ SERV SCROT&/RP FOUNDATIO R ORGN COM OPHTH 51081 TELLO DE [facility]ON MEDICAL 1 VISION ANG XM&EVAL COMPRE NEW PT 1/> VST MRI 56164 [facility]LL[facility] PELVIS 1 [facility] W/O INC INC CONTRAST MATERIAL MRI 49296 [facility] SPINAL 1 [facility] CANAL INC INC LUMBAR W/O CONTRAST MATERIAL CT PELVIS 52145 AMI AMI 0 [facility] W/CONTRAS INC INC T MATERIAL 3D 21983 [facility] MAGALLANESON RENDERING 0 [facility] INC INC W/INTERP& POSTPROC DIFF WORK STATION RADEX 97702 [place] SYBIL SPINE 0 MEDICAL GARRET CERVICAL IMAGING 4 OR 5 ASS VIEWS RADEX 47091 [facility]LL[facility] SPINE 0 [facility] CERVICAL INC INC 6 OR MORE VIEWS Encounters Encounter Start End Date Code Location Performer Type Date EMERGENCY 07334 YAJAIRA EARL 7 7 PHYSICIAN DEPARTMEN S, PLLC T VISIT HIGH/URGE NT SEVERITY OFFICE 58584 [facility] GALE [place] 7 7 PHYSICIAN T VISIT S GROUP 15 MINUTES OFFICE 00525 KYLIE [place] 7 7 T VISIT 15 MINUTES OFFICE 60632 [facility] ASHLEYEDUARDA NUNEZEN 7 7 PHYSICIAN T NEW 30 S GROUP MINUTES OFFICE 76229 ARNOLD ARNOLD OUTPATIEN 7 7 T VISIT 15 MINUTES OFFICE 77298 KYLIE ESPINAL OUTPATIEN 6 6 LA LA T VISIT 15 MINUTES EMERGENCY 30040 YAJAIRA [facility] [place] 6 6 PHYSIC[facility], [facility] H[facility]URGE NT SEVERITY HOSPITAL AMI - 6 6 [facility] OUTPATIEN INC T EMERGENCY 38333 AMI 6 6 [facility] DEPARTMEN INC T VISIT LOW/MODER SEVERITY EMERGENCY 24154 [facility] 4 4 SHANNAN DEPARTMEN EMERGENCY T VISIT PHYS HIGH/URGE NT SEVERITY INITIAL 71285 [facility] PREVENTIV 3 3 PHYSICIAN E S GROUP MEDICINE NEW PT AGE 18-39YRS OFFICE 64951 [facility] M[facility]ILLO OUTPATIEN 3 3 DON DON T VISIT 15 MINUTES OFFICE 47733 [facility] MURILLO OUTPATIEN 3 3 DON DON T VISIT 15 MINUTES OFFICE 16553 [facility] [place] OUT[facility] 1 1 [facility] T VISIT CLINIC 25 PSC MINUTES [facility]ICE 45987 [facility] 1 [facility] T VISIT CLINIC 25 PSC MINUTES OFFICE 97419 [facility] MURILLO OUTPATIEN 1 1 DON DON T VISIT 15 MINUTES HOSPITAL UNIVERSIT - [address] [facility] T OFFICE 08358 [place] [facility] OUTPATIEN 1 1 MEDICAL T VISIT SERV 15 [facility] MINUTES OFFICE 02350 [place] [facility] OUTPATI[place] 1 1 MEDICAL T VISIT SERV 15 FOUNDATIO MINUTES HOSPITAL UNIVERSIT - [address] [facility] T OFFICE 11373 [place] [facility] OUTPATIEN 1 1 MEDICAL T NEW 30 SERV MINUTES [facility] OFFICE 14587 [place] HUSSEIN PHI CONSULTAT 1 1 MEDICAL ION SERV NEW/ESTAB [facility] PATIENT 40 MIN [facility] AMI - 1 1 [facility] HOS[facility] OUTPATIEN INC T OFFICE 51655 AMI AGEEKINS OUTPATIEN 1 1 [facility] 10 HOSPITAL MINUTES [facility] AMI - 0 0 MEM HOS[facility] OUTPATIEN INC T OFFICE 87467 [facility]EVES OUTPATIEN 0 0 [facility] 10 UROLOGY MINUTES [facility] AMI - 0 0 MEM HOSP OUTPATIEN INC T OFFICE 99650 CHIDI MURILLO OUTPATIEN 0 0 DON DON T VISIT 15 MINUTES EMERGENCY 46545 AMI 0 0 [facility] DEPARTMEN INC T VISIT LOW/MODER SEVERITY EMERGENCY 43860 [facility] EARL 0 0 EMERGENCY [facility] DEPARTMEN SERVICES T VISIT MODERATE SEVERITY HOSPITAL AMI - 0 0 [facility] OUTPATIEN INC T OFFICE 99226 CHIDI MURILLO OUTPATIEN 0 0 DON DON T VISIT 15 MINUTES OFFICE 67402 CH[facility]I MURILLO, OUTPATINATHEN 0 0 DON R DON R T VISIT 25 MINUTES
--- OUTSIDE RECORDS SUMMARY | 2017-07-01 02:37 | External Medical Summary Rpt | CCD ---
Author Author , ALEXANDER MUNOZ Address Unknown Phone [email or web address] Providers Care Health And Safety Advisor Name Role Phone NIEVES ASHLY, NIEVES Unavailable Unavailable ASHLY [facility] Unavailable Unavailable ASSOC[facility]ATES, PSC, [facility] ARNOLD, ARNOLD Unavailable Unavailable ARNOLD, ARNOLD Unavailable Unavailable ARNOLD LA, ARNOLD Unavailable Unavailable LA ARNOLD LA, ARNOLD Unavailable Unavailable LA GRIFFIN ALL, GRIFFIN ALL Unavailable Unavailable [facility] Unavailable Unavailable [facility] Unavailable Unavailable [facility] Unavailable Unavailable [facility], [facility] SYBIL GARRET, Unavailable Unavailable SYBIL GARRET [facility], Unavailable Unavailable [facility] Unavailable Unavailable [place], [facility] [place] RAJAT, RAJAT Unavailable Unavailable RAJAT CAROLYNE, RAJAT Unavailable Unavailable [facility] Unavailable Unavailable INC, [facility], Unavailable Unavailable [facility] Unavailable [facility], [facility] Un[facility], [facility] BEASLEY, BEASLEY Unavailable Unavailable [facility] Unavailable Unavailable SERVICES, [facility] Unavailable Unavailable [facility], [facility] Unavailable Unavailable [facility], [facility], Unavailable Unavailable PLLC, [facility], [facility]available Unavailable [facility], Unavailable Unavailable [facility] ASHLEY, ASHLEY Unavailable Unavailable [facility] Unavailable Unavailable [id number] # [id number], [facility] [id number] # [id number] SADEK MOH, SADEK MOH Unavailable Unavailable SCIFRES ANG, SCIFRES Unavailable Unavailable ANG SANTOS BENY, SANTOS Unavailable Unavailable BEN[facility], Unavailable Unavailable [facility] MURILLO DON, Unavailable Unavailable MURILLO DON MURILLO DON, Unavailable Unavailable MURILLO DON MURILLO, DON R, Unavailable Unavailable MURILLO, DON R STRUP BRITNI, STRUP BRITNI Unavailable Unavailable [facility], [facility] Unavailable Unavailable [facility], Unavailable Unavailable [facility] MONSE SHA, WELLS SHA Unavailable Unavailable WHITE TONE, WHITE TONE Unavailable Unavailable Purpose Continuity of Care Document - 03-12-2010 through 2016 Problems Code Diagnosis DOS Provider Status [id number] CONTUSION 05-11-2017 [facility] RT FRONT PHYSICIANS, WALL THORAX PLLC INITIAL ENCOUNTER [id number] UNSPECIFIED 05-11-2017 [facility] SPRAIN OF PHYSICIANS, LEFT HIP PLLC INITIAL ENCOUNTER D2230 MELANOCYTIC 01-28-2017 [facility] NEVI OF PHYSICIANS UNSPECIFIED GROUP PART OF FACE D0330 MELANOMA IN 12-07-2016 ARNOLD SITU OF UNSPECIFIED PART OF FACE G8929 OTHER 11-05-2016 [facility] CHRONIC PHYSICIANS PAIN GROUP [id number] PRIMARY 11-05-2016 [facility] OSTEOARTHRI PHYSICIANS TIS GROUP UNSPECIFIED SHOULDER [id number] PAIN IN 11-05-2016 [facility] LEFT PHYSICIANS SHOULDER GROUP [id number] UNS ROT 11-05-2016 [facility] CUFF PHYSICIANS TEAR/RUPT GROUP LT SHLDR NOT SPEC TRAUMAT [id number] UNS INJURY 11-05-2016 [facility] LT SHOULDER PHYSICIANS UPPER ARM GROUP INITIAL ENCNTR Y51774 PAIN IN 10-13-2016 ARNOLD UNSPECIFIED SHOULDER L0390 CELLULITIS 08-25-2016 ARNOLD LA UNSPECIFIED [id number] INSECT BITE 05-21-2016 [facility], NONVENOMOUS PLL RT HAND INITIAL ENC [id number] TOXIC 05-21-2016 [facility] VENOM WASPS INC ACCIDENTAL INITIAL ENC 87210 PAIN IN 05-29-2014 [facility] JOINT, LOWER LEG 60799 PAIN IN 05-29-2014 [facility] MEDICAL [facility]KLE [facility] IM[facility]ING [facility] FOOT 92868 UNSPECIFIED 05-29-2014 [facility] SITE OF N EMERGENCY ANKLE PHYS SPRAIN AND STRAIN E8888 OTHER FALL 05-29-2014 [facility] N EMERGENCY PHYS V700 ROUTINE 01-23-2013 [facility] GENERAL PHYSICIANS MEDICAL GROUP EXAM@HEALTH CARE FACL V5832 ENCOUNTER 12-05-2012 [facility] FOR REMOVAL DON OF SUTURES 2165 BENIGN 11-23-2012 [facility] NEOPLASM OF DON SKIN OF TRUNK EXCEPT SCROTUM 2298 BENIGN 11-23-2012 [facility] OTHER SPECIFIED SITES 2399 NEOPLASM OF 11-23-2012 [facility] UNSPECIFIED NATURE SITE UNSPECIFIED 2388 NEOPLASM 10-12-2012 [facility] UNCERTAIN DON BEHAVIOR OTHER SPEC SITES 84272 CONDYLOMA 06-29-2011 NEW ACUMINATUM [facility] PSC 6089 UNSPECIFIED 06-29-2011 NEW DISORDER [place] OF MALE CLINIC [facility] GENITAL ORGANS 59736 ABDOMINAL 06-29-2011 NEW PAIN, [facility] UNSPECIFIED CLINIC [facility] SITE 2382 NEOPLASM OF 06-05-2011 NEW UNCERTAIN [facility] BEHAVIOR OF CLINIC [facility] SKIN 7099 UNSPECIFIED 06-05-2011 AN[facility]IA DISORDER [facility]OC[facility], OF [facility] SKIN&SUBCUT ANEOUS TISSUE 92217 OTHER 05-16-2011 [facility] SPECIFIED DON DISORDER OF MALE GENITAL ORGANS V6759 OTHER 04-06-2011 [facility] EXAMINATION OTHER 29644 UNSPECIFIED 01-29-2011 [facility]CHITIS SERV AND [facility] EPIDIDYMITI S 02238 EDEMA OF 01-15-2011 [facility] MALE SERV GENITAL [facility] ORGANS 7899 OTHER 01-07-2011 [facility] SYMPTOMS SERV INVOLVING [facility] ABDOMEN AND PELVIS 26323 DEGEN 11-06-2010 [facility] LUMBAR/LUMB SERV OSACRAL [facility] INTERVERTEB RAL DISC 3671 MYOPIA 11-01-2010 [facility] 21222 PAIN IN 09-26-2010 [facility] MEDICAL PELVIC IMAGING ASS REGION AND THIGH 7242 LUMBAGO 09-26-2010 [facility] INC 30980 ABDOMINAL 09-26-2010 [facility] PAIN RIGHT [facility] LOWER INC QUADRANT 7295 PAIN IN 09-09-2010 [facility] SOFT MEDICAL TISSUES OF IMAGING ASS LIMB V2509 OTH GENERAL 09-02-2010 [facility] CNSL&ADVICE PSC CONTRACEPT MANAGEMENT 7231 CERVICALGIA 08-08-2010 [facility] 6010 ACUTE 08-06-2010 [facility] PROSTATITIS DON 45152 PAIN IN 08-06-2010 [facility] JOINT, DON SHOULDER REGION 7245 UNSPECIFIED 08-06-2010 [facility] BACKACHE DON 9104 E 05-11-2010 [facility] NCK&SCLP NO [facility] EYE INSECT INC BITE NONVNOM W/O INF 9105 [facility] 05-11-2010 [facility] NECK&SCLP EMERGENCY NO EYE SERVICES [...] DE ES ZA 11 11 11 H MS 0 PH RA IN AR MA E [...] DE ES ZA 11 11 11 H MS 0 PH RA IN AR MA E [...] 20 DE ZA 11 11 11 TI MS 0 PH MO IN AR TH E MA Y 10 CY D MG OF TA CY BL NT ET HI AN A CY 00 01 01 1 90 30 EA 20 AD Ac CL 37 -1 -[address] 86 KI ti OB 80 8- 8- 00 SI 26 NS ve EN 75 20 20 DE ZA 11 11 11 TI MS 0 PH MO IN AR TH E [...] 3- 3- 00 SI 72 EY ve MS 02 20 20 DE ED 20 10 10 GA NI 7 PH CH SO AR AE LO MA L NE CY S 4 OF MG CY DO NT SE HI PK AN A CE 00 08 08 0 21 7 EA 18 GA Ac PH 09 -2 -[address] 81 IN ti AL 33 3- 3- 00 SI 73 EY ve EX 14 20 20 DE IN 70 10 10 GA 5 PH CH 50 AR AE 0 [...] 3 [address] Ac MS 09 -2 -2 .0 TE 91 EP ti OX 30 3- 3- 00 87 HE ve EN 14 20 20 AI NS 90 10 10 D 50 1 PH DO 0 AR N MG MA R CY TA BL 03 ET 93 8 # 03 93 CI 65 06 06 [address] Ac MS 86 -2 -2 .0 TE 91 EP ti OF 20 88 HE ve LO 07 20 20 AI NS XA 70 10 10 D CI 1 PH DO N AR N HC MA R L CY 50 0 03 MG 93 8 TA # B 03 93 Procedures Procedure DOS Code Location Performer Comment RADEX 83321 [facility] GRIFFIN ALL SHOULDER 6 MEDICAL COMPLETE IMAGING MINIMUM 2 ASS VIEWS THERAPEUT 01471 [facility] MUELLER IC 6 MEM [facility]OS[facility] PROPHYLAC INC INC TIC/DX INJECTION SUBQ/IM CRTCHS E0114 [facility] UNDARM 4 OTH THAN WOOD PAIR PAD TIP&HNDGR IP ANKLE L4350 [facility] CONTROL 4 ORTHOSIS STIRRUP STYL RIGID PREFAB RADEX 67144 [facility] SYBIL ANKLE 4 MEDICAL GARRET COMPLETE IMAGING MINIMUM 3 [place] [address] [facility] SURG 3 DIAGNOSTI DIAGNOSTI PATHOLOGY CS CS GROSS&CAROLYNE ROSCOPIC EXAM EXC B9 41594 [facility] MURILLO LESION 3 DON DON MRGN XCP SK TG T/A/L 0.5 CM/< URNLS DIP 98058 [facility] STICK/TAB CLINIC LET [place] [address] [place] [facility] SURG 1 [facility] BENY PATHOLOGY CLINIC PSC GROSS&CAROLYNE ROSCOPIC EXAM EXC B9 17415 NEW [place] [facility] 1 [facility] MRGN XCP CLINIC CLINIC SK TG PSC PSC T/A/L 2.1-3.0 CM EXC B9 35722 NEW [place] 1 [facility] MRGN XCP CLINIC CLINIC SK TG PSC PSC T/A/L >4.0 CM DSTRJ 26450 NEW [place] 1 [facility] PENIS CLINIC CLINIC EXTENSIVE PSC PSC ANESTHESI 58837 ANESTHESI WHITE TONE A MALE 1 A GENITALIA ASSOCIATE INCL S, PSC OPEN URETHRAL PX URNLS DIP 87386 [facility] 1 [place] THO STICK/TAB CLINIC LET PSC REAGENT AUTO MICROSCOP Y DUP-SCAN 45493 [facility] 1 Y Y ABDL/PEL/ HOSPITAL HOSPITAL SCROT&/[place] [address] [facility] & [address] [facility] [address] [facility] & 1 Y Y CONTENTS [facility] DUP-SCAN 51964 [facility] [place] 1 Y Y ABDL/PEL/ HOSPITAL HOSPITAL SCROT&/RP R ORGN COM OPHTH 17986 [facility] 1 VISION ANG XM&EVAL COMPRE NEW PT 1/> VST MRI 72240 [facility] PELVIS 1 MEDICAL GARRET W/O IMAGING CONTRAST ASS MATERIAL MRI 24278 [facility] MUELLER SPINAL 1 [facility] CANAL INC INC LUMBAR W/O CONTRAST MATERIAL CT PELVIS 56650 [facility] SYBIL 0 MEDICAL GARRET W/CONTRAS IMAGING T ASS MATERIAL 3D 42468 [facility] MAGALLANESON RENDERING 0 [facility] INC INC W/INTERP& POSTPROC DIFF WORK STATION RADEX 03515 [facility] SPINE 0 MEDICAL GARRET CERVICAL IMAGING 4 OR 5 ASS VIEWS RADEX 78679 [facility] MAGALLANESON SPINE 0 [facility] CERVICAL INC INC 6 OR MORE VIEWS Encounters Encounter Start End Date Code Location Performer Type Date EMERGENCY 29172 YAJAIRA EARL 7 7 PHYSICIAN DEPARTMEN S, PLLC T VISIT HIGH/URGE NT SEVERITY OFFICE 25103 [facility] GALE [place] 7 7 PHYSICIAN T VISIT S GROUP 15 MINUTES OFFICE 64331 KYLIE DARDENPATIEN 7 7 T VISIT 15 MINUTES OFFICE 41422 [facility] ASHLEY OUTPATIEN 7 7 PHYSICIAN T NEW 30 S GROUP MINUTES OFFICE 80903 ARNOLD ARNOLD OUTPATIEN 7 7 T VISIT 15 MINUTES OFFICE 37237 KYLIE ESPINAL OUTPATIEN 6 6 LA LA T VISIT 15 MINUTES EMERGENCY 02983 [facility]JAIRA [facility] 6 6 PHYSICIAN DEPARTMEN S, PLLC T VISIT HIGH/URGE NT SEVERITY EMERGENCY 73011 [facility] 6 6 [facility] DEPARTMEN INC T VISIT LOW/MODER SEVERITY HOSPITAL AMI - 6 6 [facility] OUTPATIEN INC T EMERGENCY 01408 [facility] 4 4 SHANNAN DEPARTMEN EMERGENCY T VISIT PHYS HIGH/URGE NT SEVERITY INITIAL 71207 [facility] PREVENTIV 3 3 PHYSICIAN E S GROUP MEDICINE NEW PT AGE 18-39YRS OFFICE 46782 [facility] OUTPATIEN 3 3 DON DON T VISIT 15 MINUTES OFFICE 89208 [facility] MURILLO OUTPATIEN 3 3 DON DON T VISIT 15 MINUTES OFFICE 28670 [facility] 1 1 [facility] T VISIT CLINIC 25 PSC MINUTES OFFICE 67024 [facility] OUTPATI[facility] 1 1 [facility] T VISIT CLINIC 25 PSC MINUTES OFFICE 45410 [facility] OUTPATIEN 1 1 DON DON T VISIT 15 MINUTES HOSPITAL UNIVERSIT - 1 1 [facility] T OFFICE 63453 [place] STRUP BRITNI OUTPATIEN 1 1 MEDICAL T VISIT SERV 15 [facility] MINUTES OFFICE 74806 [place] STRUP BRTINI OUTPATIEN 1 1 MEDICAL T VISIT SERV 15 [facility] MINUTES HOSPITAL UNIVERSIT - 1 1 [facility] T OFFICE 87212 [place] [facility] [facility] OUTPATIEN 1 1 MEDICAL T NEW 30 SERV MINUTES [facility] OFFICE 21825 [place] HUSSEIN PHI CONSULTAT 1 1 MEDICAL ION SERV NEW/ESTAB [facility] PATIENT 40 MIN [facility] AMI - 1 1 [facility] OUTPATIEN INC T OFFICE 54863 AMI NIEVES OUTPATIEN [address] [facility] 10 HOSPITAL MINUTES [facility] AMI - 0 0 [facility] OUTPATIEN INC T OFFICE 17717 [place] NIEVES OUTPATIEN 0 0 [facility] 10 UROLOGY MINUTES [facility] AMI - 0 0 [facility] OUTPATIEN INC T OFFICE 70205 [facility] MURILLO OUTPATIEN 0 0 DON DON T VISIT 15 MINUTES HOSPITAL AMI - 0 0 [facility] OUTPATIEN INC T EMERGENCY 48464 [facility] EARL 0 0 EMERGENCY [facility] DEPARTMEN SERVICES T VISIT MODERATE SEVERITY EMERGENCY 16677 AMI 0 0 [facility] DEPARTMEN INC T VISIT LOW/MODER SEVERITY OFFICE 21597 [facility] MURILLO OUTPATIEN 0 0 DON DON T VISIT 15 MINUTES OFFICE 25189 [facility] MURILLO, OUTPATIEN 0 0 DON R DON R T VISIT 25 MINUTES
--- OUTSIDE RECORDS SUMMARY | 2017-07-01 02:37 | External Medical Summary Rpt | CCD ---
Author Author , ALEXANDER MUNOZ Address Unknown Phone [email or web address] Care Team Providers Care Commodity Loan Clerk Name Role Phone NIEVES ASHLY, NIEVES Unavailable Unavailable [facility] Unavailable Unavailable [facility], [facility], [facility] ARNOLD, ARNOLD Unavailable Unavailable ARNOLD, ARNOLD Unavailable Unavailable ARNOLD LA, ARNOLD Unavailable Unavailable LA ARNOLD LA, ARNOLD Unavailable Unavailable LA GRIFFIN ALL, GRIFFIN ALL Unavailable Unavailable [facility] Unavailable Unavailable [facility] Unavailable Unavailable [facility] Unavailable Unavailable [facility], [facility] SYBIL GARRET, Unavailable Unavailable SYBIL GARRET [facility], Unavailable Unavailable [facility] Unavailable Unavailable [place], [facility] [place] RAJAT, RAJAT Unavailable Unavailable RAJAT CAROLYNE, RAJAT Unavailable Unavailable [facility] Un[facility] Unavailable INC, [facility], Unavailable Unavailable [facility] Unavailable [facility], [facility] Un[facility] Unavailable [facility], [facility] BEASLEY, BEASLEY Unavailable Unavailable [facility] Unavailable Unavailable SERVICES, [facility] Unavailable Unavailable [facility], [facility] Unavailable Unavailable [facility], [facility], Unavailable Unavailable PLLC, [facility], Unavailable Unavailable [facility], Unavailable Unavailable [facility] ASHLEY, ASHLEY Unavailable Unavailable [facility] Unavailable Unavailable [id number] # [id number], [facility] [id number] # [id number] SADEK MOH, SADEK MOH Unavailable [...] Unavailable [facility], [facility] Unavailable Unavailable [facility], Unavailable Unavailable [facility] MONSE SHA, WELLS SHA Unavailable Unavailable [facility], [facility] Unavailable Unavailable Purpose Continuity of Care Document - 03-12-2010 through 2016 Problems Code Diagnosis DOS Provider Status [id number] CONTUSION 05-11-2017 [facility] RT FRONT [facility]ANS, WALL THORAX PLLC INITIAL ENCOUNTER [id number] UNSPECIFIED 05-11-2017 [facility] SPRAIN OF PHYSICIANS, LEFT HIP PLLC INITIAL ENCOUNTER D2230 MELANOCYTIC 01-28-2017 [facility] NEVI OF PHYSICIANS UNSPECIFIED GROUP PART OF FACE D0330 MELANOMA IN 12-07-2016 ARNOLD SITU OF UNSPECIFIED PART OF FACE G8929 OTHER 11-05-2016 [facility] CHRONIC PHYSICIANS PAIN GROUP [id number] PRIMARY 11-05-2016 [facility] OSTEOARTHRI PHYSICIANS TIS GROUP UNSPECIFIED SHOULDER N25046 PAIN IN 11-05-2016 [facility] LEFT PHYSICIANS SHOULDER GROUP O43304 UNS ROT 11-05-2016 [facility] CUFF PHYSICIANS TEAR/RUPT GROUP LT SHLDR NOT SPEC TRAUMAT [id number] UNS INJURY 11-05-2016 [facility] LT SHOULDER PHYSICIANS UPPER ARM GROUP INITIAL ENCNTR D01023 PAIN IN 10-13-2016 ARNOLD UNSPECIFIED SHOULDER L0390 CELLULITIS 08-25-2016 ARNOLD LA UNSPECIFIED U29369L INSECT BITE 05-21-2016 [facility], NONVENOMOUS PLL RT HAND INITIAL ENC [id number] TOXIC 05-21-2016 [facility]PS INC ACCIDENTAL INITIAL ENC 40880 PAIN IN 05-29-2014 [facility] JOINT, LOWER LEG 03517 PAIN IN 05-29-2014 [facility], MEDICAL ANKLE AND IMAGING ASS FOOT 53194 UNSPECIFIED 05-29-2014 [facility] SITE OF N EMERGENCY ANKLE PHYS SPRAIN AND STRAIN E8888 OTHER FALL 05-29-2014 [facility] N EMERGENCY PHYS V700 ROUTINE 01-23-2013 [facility] GENERAL PHYSICIANS MEDICAL GROUP EXAM@HEALTH CARE FACL V5832 ENCOUNTER 12-05-2012 [facility] FOR REMOVAL DON OF SUTURES 2165 BENIGN 11-23-2012 [facility] NEOPLASM OF DON SKIN OF TRUNK EXCEPT SCROTUM 2298 BENIGN 11-23-2012 [facility] OTHER SPECIFIED SITES 2399 NEOPLASM OF 11-23-2012 [facility] UNSPECIFIED NATURE SITE UNSPECIFIED 2388 NEOPLASM 10-12-2012 [facility] UNCERTAIN DON BEHAVIOR OTHER SPEC SITES 23479 CONDYLOMA 06-29-2011 NEW ACUMINATUM [facility] PSC 6089 UNSPECIFIED 06-29-2011 NEW DISORDER [place] OF MALE CLINIC [facility] GENITAL ORGANS 66580 ABDOMINAL 06-29-2011 NEW PAIN, [place] UNSPECIFIED CLINIC [facility] SITE 2382 NEOPLASM OF 06-05-2011 NEW UNCERTAIN [place] BEHAVIOR OF CLINIC [facility] SKIN 7099 UNSPECIFIED 06-05-2011 [facility], OF [facility] SKIN&SUBCUT ANEOUS TISSUE 19832 OTHER 05-16-2011 [facility] SPECIFIED DON DISORDER OF MALE GENITAL ORGANS V6759 OTHER 04-06-2011 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 3671 MYOPIA 11-01-2010 [facility] 96061 PAIN IN 09-26-2010 [facility] MEDICAL PELVIC IMAGING ASS REGION AND THIGH 7242 LUMBAGO 09-26-2010 [facility] 31265 ABDOMINAL 09-26-2010 AIM PAIN RIGHT [facility] LOWER INC QUADRANT 7295 PAIN IN 09-09-2010 [facility] [place] SOFT MEDICAL TISSUES OF IMAGING ASS LIMB V2509 OTH GENERAL 09-02-2010 [facility] CNSL&ADVICE PSC CONTRACEPT MANAGEMENT 7231 CERVICALGIA 08-08-2010 [facility] 6010 ACUTE 08-06-2010 [facility] PROSTATITIS DON 83702 PAIN IN 08-06-2010 [facility] JOINT, DON SHOULDER [...] DE ES ZA 11 11 11 H VA 0 PH RA IN AR MA E [...] DE ES ZA 11 11 11 H VA 0 PH RA IN AR MA E [...] 20 DE ZA 11 11 11 TI VA 0 PH MO IN AR TH E MA Y 10 CY D MG OF TA CY BL NT ET HI AN A CY 00 01 01 1 90 30 EA 20 AD Ac CL 37 -1 -[address] 86 KI ti OB 80 8- 8- 00 SI 26 NS ve EN 75 20 20 DE ZA 11 11 11 TI VA 0 PH MO IN AR TH E [...] 3- 3- 00 SI 72 EY ve VA 02 20 20 DE ED 20 10 10 SC NI 7 PH CH SO AR AE LO MA L NE CY S 4 OF MG CY DO NT SE HI PK AN A CE 00 08 08 0 21 7 EA 18 GA Ac PH 09 -2 -[address] 81 IN ti AL 33 3- 3- 00 SI 73 EY ve EX 14 20 20 DE IN 70 10 10 SC 5 PH CH 50 AR AE 0 [...] 3 [address] Ac VA 09 -2 -2 .0 TE 91 EP ti OX 30 3- 3- 00 87 HE ve EN 14 20 20 AI NS 90 10 10 D 50 1 PH DO 0 AR N MG MA R CY TA BL 03 ET 93 8 # 03 93 CI 65 06 06 [address] Ac VA 86 -2 -2 .0 TE 91 EP ti OF 20 88 HE ve LO 07 20 20 AI NS XA 70 10 10 D CI 1 PH DO N AR N HC MA R L CY 50 0 03 MG 93 8 TA # B 03 93 Procedures Procedure DOS Code Location Performer Comment RADEX 94422 [facility] [place] G[facility] ALL SHOULDER 6 MEDICAL COMPLETE IMAGING MINIMUM 2 ASS VIEWS THERAPEUT 33674 [facility] MUELLER IC 6 [facility] PROPHYLAC INC INC TIC/DX INJECTION SUBQ/IM CRTCHS E0114 [facility] UNDARM 4 OTH THAN WOOD PAIR PAD TIP&HNDGR IP ANKLE L4350 [employer] CONTROL 4 ORTHOSIS STIRRUP STYL RIGID PREFAB RADEX 28599 [facility] SYBIL ANKLE 4 MEDICAL GARRET COMPLETE IMAGING MINIMUM 3 [place] [address] [facility] SURG 3 DIAGNOSTI DIAGNOSTI PATHOLOGY CS CS GROSS&CAROLYNE ROSCOPIC EXAM EXC B9 05119 [facility] MUR[facility]O LESION 3 DON DON MRGN XCP SK TG T/A/L 0.5 CM/< URNLS DIP 96272 [facility] [place] TH[facility] STICK/TAB CLINIC LET P[place] [address] [place] [facility] [place] BENY PATHOLOGY CLINIC PSC GROSS&CAROLYNE ROSCOPIC EXAM EXC B9 82906 NEW [place] 1 [facility] MRGN XCP CLINIC CLINIC SK TG PSC PSC T/A/L 2.1-3.0 CM EXC B9 32662 NEW [place]ES[place] 1 [facility] MRGN XCP CLINIC CLINIC SK TG PSC PSC T/A/L >4.0 CM DSTRJ 34909 NEW NEW [place]ES[place] 1 [facility] PENIS CLINIC CLINIC EXTENSIVE PSC PSC ANESTHESI 86155 ANESTHESI WHITE TONE A MALE 1 A GENITALIA ASSOCIATE INCL S, PSC OPEN URETHRAL PX URNLS DIP 90757 [facility] [place] THO STICK/TAB CLINIC LET PSC REAGENT AUTO MICROSCOP Y DUP-SCAN 14422 [facility] 1 Y Y ABDL/PEL/ HOSPITAL HOSPITAL SCROT&[place] [address] [facility] & 1 Y Y CONTENTS [facility] 26319 [facility] & 1 Y Y CONTENTS [facility] DUP-SCAN 80020 [facility] 1 Y Y ABDL/PEL/ HOSPITAL HOSPITAL SCROT&/RP R ORGN COM OPHTH 25024 [facility] 1 VISION ANG XM&EVAL COMPRE NEW PT 1/> VST MRI 09941 [place] SYB[facility] PELVIS 1 MEDICAL GARRET W/O IMAGING CONTRAST ASS MATERIAL MRI 45502 [facility] MUELLER SPINAL 1 [facility] CANAL INC INC LUMBAR W/O CONTRAST MATERIAL CT PELVIS 85230 [place] SYBIL 0 MEDICAL GARRET W/CONTRAS IMAGING T ASS MATERIAL 3D 37865 [facility] MAGALLANESON RENDERING 0 [facility] INC INC W/INTERP& POSTPROC DIFF WORK STATION RADEX 25525 [place] SY[facility] SPINE 0 MEDICAL GARRET CERVICAL IMAGING 4 OR 5 ASS VIEWS RADEX 44213 [facility] MAGALLANESON SPINE 0 [facility] CERVICAL INC INC 6 OR MORE VIEWS Encounters Encounter Start End Date Code Location Performer Type Date EMERGENCY 90396 [facility] EARL 7 7 PHYSICIAN DEPARTMEN S, PLLC T VISIT HIGH/URGE NT SEVERITY OFFICE 91761 [facility] [place] 7 7 PHYSICIAN T VISIT S GROUP 15 MINUTES OFFICE 85252 KYLIE DARDENPATIEN 7 7 T VISIT 15 MINUTES OFFICE 32077 [facility] ASHLEY OUTPATIEN 7 7 PHYSICIAN T NEW 30 S GROUP MINUTES OFFICE 80645 ARNOLD ARNOLD OUTPATIEN 7 7 T VISIT 15 MINUTES OFFICE 82461 KYLIE ESPINAL OUTPATIEN 6 6 LA LA T VISIT 15 MINUTES EMERGENCY 61038 [facility] 6 6 PHYSICIAN DEPARTMEN S, PLLC T VISIT HIGH/URGE NT SEVERITY EMERGENCY 60308 [facility] 6 6 [facility] DEPARTMEN INC T VISIT LOW/MODER SEVERITY HOSPITAL AMI - 6 6 [facility] OUTPATIEN INC T EMERGENCY 18[address] [facility] 4 4 [facility]AN[facility] DEPARTMEN EMERGENCY T VISIT PHYS HIGH/URGE NT SEVERITY INITIAL 27634 [facility] PREVENTIV 3 3 PHYSICIAN E S GROUP MEDICINE NEW PT AGE 18-39YRS OFFICE 99926 [facility] OUTPATIEN 3 3 DON DON T VISIT 15 MINUTES OFFICE 87015 [facility] M[facility] OUTPATIEN 3 3 DON DON T VISIT 15 MINUTES OFFICE 49601 [facility] 1 1 [facility] T VISIT CLINIC 25 PSC MINUTES OFFICE 37556 [facility] OUTPATIEN 1 1 [facility] T VISIT CLINIC 25 PSC MINUTES OFFICE 79762 [facility] OUTPATIEN 1 1 DON DON T VISIT 15 MINUTES HOSPITAL UNIVERSIT - 1 1 [facility] T OFFICE 24567 [place] [facility] OUTPATI[facility] 1 1 MEDICAL T VISIT SERV 15 [facility] MINUTES OFFICE 13328 [place] [facility] OUTPATI[facility] 1 1 MEDICAL T VISIT SERV 15 [facility] MINUTES HOSPITAL UNIVERSIT - 1 1 [facility] T OFFICE 65980 [place] [facility] OUTPATIEN 1 1 MEDICAL T NEW 30 SERV MINUTES [facility] OFFICE 00569 [place] [facility] PHI CONSULTAT 1 1 MEDICAL ION SERV NEW/ESTAB [facility] PATIENT 40 MIN [facility] AMI - 1 1 [facility] OUTPATIEN INC T OFFICE 37763 [facility] NIEVES OUTPATIEN 1 1 [facility] 10 HOSPITAL MINUTES [facility] AMI - 0 0 [facility] OUTPATIEN INC T OFFICE 78904 [place] NIEVES OUTPATIEN 0 0 [facility] 10 UROLOGY MINUTES [facility] AMI - 0 0 [facility] OUTPATIEN INC T OFFICE 11816 [facility] M[facility] OUTPATIEN 0 0 DON DON T VISIT 15 MINUTES HOSPITAL AMI - 0 0 [facility] OUTPATIEN INC T EMERGENCY 11545 ROSALVA EARL 0 0 EMERGENCY [facility] T VISIT MODERATE SEVERITY EMERGENCY 71011 AM[facility] 0 0 [facility] DEPARTMEN INC T VISIT LOW/MODER SEVERITY OFFICE 74857 [facility] M[facility]O OUTPATIEN 0 0 DON DON T VISIT 15 MINUTES OFFICE 66108 [facility] MURILLO, OUTPATIEN 0 0 DON R DON R T VISIT 25 MINUTES
--- OUTSIDE RECORDS SUMMARY | 2017-07-01 02:38 | External Medical Summary Rpt | CCD ---
Demographics Preferred Language Bangladeshi Marital Status Unknown Pentecostal Affiliation Unknown Race Unknown Ethnic Group Unknown Author Author , ALEXANDER MUNOZ Address Unknown Phone Immunization Unable to retrieve immunization data due to connection failure with Immunization Registry. Please try again later.
--- OUTSIDE RECORDS SUMMARY | 2017-07-01 02:38 | External Medical Summary Rpt | CCD ---
Demographics Preferred Language Kyrgyz Marital Status Unknown Jewish Affiliation Unknown Race Unknown Ethnic Group Unknown Author Author , ALEXANDER MUNOZ Address Unknown Phone Immunization Unable to retrieve immunization data due to connection failure with Immunization Registry. Please try again later.
--- OUTSIDE RECORDS SUMMARY | 2017-07-01 02:39 | External Medical Summary Rpt ---
Author Author [employer], [employer] Organization [employer] Address Unknown Phone Unavailable Results CBC W Auto Differential panel in Blood Observa Value Referen Units Interpr Notes Date tion ce etation Range Basophils 0 - 0.2 K/MM3 Normal No Oct 2 informati 2017 7:55 [#/volume on in AM ] in source Blood by data Automated count Basophils 0.1 - 2.0 % Normal No Oct 2 /100 informati 2017 7:55 leukocyte on in AM s in source Blood by data Automated count Eosinophi 0.0 - 0.4 K/mm3 Normal No Oct 2 ls informati 2017 7:55 [#/volume on in AM ] in source Blood by data Automated count Eosinophi 0.1 - % Normal No Oct 2 ls/100 12.0 informati 2017 7:55 leukocyte on in AM s in source Blood by data Automated count Granulocy 1.3 - 8.0 K/mm3 High No Oct 2 nathan informati 2017 7:55 [#/volume on in AM ] in source Blood by data Automated count Granulocy 37.0 - % High No Oct 2 nathan/100 80.0 informati 2017 7:55 leukocyte on in AM s in source Blood by data Automated count Hematocri 42.0 - % Low No Jun 2 t [Volume 52.0 informati 2017 7:55 on in AM Fraction] source of Blood data Hemoglobi 14.1 - g/dL Low No Oct 2 n 18.0 informati 2017 7:55 [Mass/vol on in AM ume] in source Blood data Lymphocyt 0.7 - 4.5 K/mm3 Normal No Oct 2 es informati 2017 7:55 [#/volume on in AM ] in source Unspecifi data ed specimen by Automated count Lymphocyt 10 - 50 % Low No Oct 2 es informati 2017 7:55 [#/volume on in AM ] in source Unspecifi data ed specimen by Automated count Erythrocy 27 - 31.2 pg Normal No Oct 2 te mean informati 2017 7:55 corpuscul on in AM ar source hemoglobi data n [Entitic mass] Erythrocy 31.8 - g/dl Normal No Oct 2 te mean 35.4 informati 2017 7:55 corpuscul on in AM ar source hemoglobi data n concentra tion [Mass/vol ume] by Automated count Erythrocy 82.2 - fl Normal No Oct 2 te mean 97.8 informati 2016 7:55 corpuscul on in AM ar volume source [Entitic data volume] by Automated count Monocytes 0.1 - 1.0 K/mm3 High No Oct 2 informati 2016 7:55 [#/volume on in AM ] in source Blood by data Automated count Monocytes 1.7 - 9.3 % Normal No Jun 21 informati 2016 7:55 leukocyte on in AM s in source Blood by data Automated count Platelet 7.4 - fl Low No Jun 2 mean 10.4 informati 2017 7:55 volume on in AM [Entitic source volume] data in Blood by Automated count Platelets 142 - 424 K/mm3 No No Jun 2 informati informati 2016 7:55 [#/volume on in on in AM ] in source source Blood data data Erythrocy 4.6 - 6.2 M/mm3 Normal No Jun 2 nathan informati 2016 7:55 [#/volume on in AM ] in source Amniotic data fluid Erythrocy 11.5 - % Normal No Oct 2 te 17.5 informati 2016 7:55 distribut on in AM ion width source [Entitic data volume] by Automated count Leukocyte 4.8 - K/MM3 High No Jun 2 s 10.8 informati 2016 7:55 [#/volume on in AM ] in source Blood data Differential panel, method unspecified - Observa Value Referen Units Interpr Notes Date tion ce etation Range Neutrophi 0 - 8 % Normal No Jun 2 ls.band informati 2017 7:55 form/100 on in AM leukocyte source s in data Blood by Automated count Basophils 0 - 1 % Normal No Jun 21 informati 2016 7:55 leukocyte on in AM s in source Blood by data Automated count Eosinophi 0 - 3 % Normal No Oct 2 ls/100 informati 2016 7:55 leukocyte on in AM s in source Blood by data Manual count LYMPH 10 10 - 50 % Normal No Jun 2 informa 2017 tion in 7:55 AM source data Monocytes 2 - 9 % High No Oct 2 /100 informati 2017 7:55 leukocyte on in AM s in source Blood by data Automated count Platele NORMAL No No No No Oct 2 ts informa informa informa informa 2016 [Presen tion in tion in tion in tion in 7:55 AM ce] in source source source source Blood data data data data by Light microsc opy Neutrophi 42 - 76 % High No Oct 2 ls informati 2016 7:55 [#/volume on in AM ] in source Blood by data Automated count Cells No #CELLS No No Oct 2 Counted informati informati informati 2017 7:55 Total [#] on in on in on in AM in Blood source source source data data data Comprehensive metabolic 2000 panel in Serum or Plasma Observa Value Referen Units Interpr Notes Date tion ce etation Range Albumin/G 1.1 - 1.8 No Normal No Oct 2 lobulin informati informati 2017 7:55 [Mass on in on in AM ratio] in source source Serum or data data Plasma Albumin 3.4 - 5.0 gm/dL Normal No Oct 2 [Mass/vol informati 2017 7:55 ume] in on in AM Serum or source Plasma data Alkaline 46 - 116 U/L Normal No Oct 2 phosphata informati 2017 7:55 se on in AM [Enzymati source c data activity/ volume] in Serum or Plasma Bilirubin 0.2 - 1.0 mg/dL Normal No Oct 2 .total informati 2017 7:55 [Mass/vol on in AM ume] in source Serum or data Plasma Urea 7 - 18 mg/dL Normal No Oct 2 nitrogen informati 2017 7:55 [Mass/vol on in AM ume] in source Serum or data Plasma Calcium 8.5 - mg/dL Normal No Oct 2 [Mass/vol 10.1 informati 2017 7:55 ume] in on in AM Serum or source Plasma data Chloride 98 - 107 mmoL/L Normal No Oct 2 [Moles/vo informati 2017 7:55 lume] in on in AM Serum or source Plasma data Carbon 21.0 - mmoL/L Normal No Oct 2 dioxide, 32.0 informati 2017 7:55 total on in AM [Moles/vo source lume] in data Serum or Plasma Creatinin 0.70 - mg/dL Normal No Oct 2 e 1.30 informati 2017 7:55 [Mass/vol on in AM ume] in source Serum or data Plasma Creatinin 50 - 200 ML/MIN Normal No Oct 2 e renal informati 2017 7:55 clearance on in AM source predicted data by Cockcroft -Gault formula Estimated >60 ML/MIN No REFERENCE Oct 2 informati RANGE: 2017 7:55 glomerula on in >60 AM r source ML/MIN/1. filtratio data 73 SQUARE n rate METERSIf (GF this patient is -A merican, then multiply theresult by 1.210. Globulin 1.3 - 3.2 gm/dL Normal No Oct 2 [Mass/vol informati 2017 7:55 ume] in on in AM Serum source data Glucose 74 - 106 mg/dL Normal No Oct 2 [Mass/vol informati 2016 7:55 ume] in on in AM Serum or source Plasma data Potassium 3.5 - 5.1 mmoL/L Normal No Oct 2 informati 2016 7:55 [Moles/vo on in AM lume] in source Serum or data Plasma Sodium 136 - 145 mmoL/L Normal No Oct 2 [Moles/vo informati 2016 7:55 lume] in on in AM Serum or source Plasma data Aspartate 15 - 37 U/L Low No Oct 2 informati 2017 7:55 aminotran on in AM sferase source [Enzymati data c activity/ volume] in Serum or Plasma Alanine 12 - 78 U/L Normal No Oct 2 aminotran informati 2017 7:55 sferase on in AM [Enzymati source c data activity/ volume] in Serum or Plasma Protein 6.4 - 8.2 gm/dL Normal No Oct 2 [Mass/vol informati 2016 7:55 ume] in on in AM Serum or source Plasma data Creatine kinase [Enzymatic activity/volume] in Serum or Plasma Observa Value Referen Units Interpr Notes Date tion ce etation Range Creatine 39 - 308 U/L Normal No Oct 2 kinase informati 2017 7:55 [Enzymati on in AM c source activity/ data volume] in Serum or Plasma Glucose [Mass/volume] in Capillary blood by Glucometer Observa Value Referen Units Interpr Notes Date tion ce etation Range Glucose 70 - 110 mg/dl High No Oct 2 [Mass/vol informati 2017 6:13 ume] in on in AM Capillary source blood by data Glucomete r Urinalysis dipstick W Reflex Microscopic panel in Urine Observa Value Referen Units Interpr Notes Date tion ce etation Range Appeara CLEAR CLEAR No No No Sep 7 nce of informa informa informa 2017 Urine tion in tion in tion in 2:30 AM source source source data data data Bacteri 1+ O No No No Sep 7 a informa informa informa 2016 [Presen tion in tion in tion in 2:30 AM ce] in source source source Urine data data data sedimen t by Light microsc opy Bilirub NEGATIV NEG No No No Sep 7 in E informa informa informa 2017 [Presen tion in tion in tion in 2:30 AM ce] in source source source Urine data data data by Test strip Erythro NEGATIV NEG No No No Sep 7 cytes E informa informa informa 2016 [Presen tion in tion in tion in 2:30 AM ce] in source source source Urine data data data Color YELLOW YELLOW No No No Sep 7 of informa informa informa 2017 Urine tion in tion in tion in 2:30 AM source source source data data data Glucose NEG No High No Sep 7 [Mass/vol informati informati 2017 2:30 ume] in on in on in AM Urine by source source Test data data strip Ketones NEGATIV NEG mg/dL No No Sep 7 E informa informa 2016 [Presen tion in tion in 2:30 AM ce] in source source Urine data data by Automat ed test strip Mucus NEGATIV NEG No No No Sep 7 [Presen E informa informa informa 2016 ce] in tion in tion in tion in 2:30 AM Urine source source source sedimen data data data t by Light microsc opy Mucus 1+ NONE No No No Sep 7 [Presen informa informa informa 2016 ce] in tion in tion in tion in 2:30 AM Urine source source source sedimen data data data t by Light microsc opy Nitrite NEGATIV NEG No No No Sep 7 E informa informa informa 2017 [Presen tion in tion in tion in 2:30 AM ce] in source source source Urine data data data by Test strip pH of 5.0 - 8.5 No Normal No Sep 7 Urine informati informati 2017 2:30 on in on in AM source source data data Protein NEG mg/dL No No Sep 7 [Mass/vol informati informati 2017 2:30 ume] in on in on in AM Urine by source source Automated data data test strip Erythro 3-5 0 rbc/hpf No No Sep 7 cytes informa informa 2017 [Presen tion in tion in 2:30 AM ce] in source source Urine data data sedimen t by Light microsc opy Specific 1.005 - No Normal No Sep 7 gravity 1.030 informati informati 2017 2:30 of Urine on in on in AM source source data data Urobili 0.2 NEG E.U./dL No No Sep 7 nogen informa informa 2017 [Presen tion in tion in 2:30 AM ce] in source source Urine data data by Test strip Leukocyte O wbc/hpf No No Sep 7 s informati informati 2017 2:30 [#/volume on in on in AM ] in source source Urine data data Drugs identified in Urine by Screen method Observa Value Referen Units Interpr Notes Date tion ce etation Range Positive urine drug screen samples are stored for 7 days. Contact the Lab if confirmation of positives is needed. Ampheta NEGATIV <1000 ng/mL No No Sep 7 mine E informa informa 2016 [Presen tion in tion in 2:30 AM ce] in source source Urine data data by Screen method Barbitura <200 ng/mL No No Sep 7 nathan informati informati 2017 2:30 [Mass/vol on in on in AM ume] in source source Urine by data data Screen method Benzodiaz 200 ng/mL ng/mL No No Sep 7 epines informati informati 2017 2:30 [Mass/vol on in on in AM ume] in source source Serum or data data Plasma by Screen method Cocaine <300 ng/g High This is Sep 7 [Mass/vol an 2017 2:30 ume] in UNCONFIRM AM Unspecifi ED ed result. specimen This result is for medicalpu rposes and/or treatment only. Methadone <300 ng/mL No No Sep 7 informati informati 2017 2:30 [Mass/vol on in on in AM ume] in source source Unspecifi data data ed specimen Opiates <300 ng/mL No No Sep 7 [Mass/vol informati informati 2017 2:30 ume] in on in on in AM Unspecifi source source ed data data specimen Phencycli <25 ng/mL No No Sep 7 dine informati informati 2017 2:30 [Mass/vol on in on in AM ume] in source source Unspecifi data data ed specimen 11-Hydr POSITIV <50 ng/mL Abnorma This is Sep 7 oxy E l an 2017 delta-9 UNCONFI 2:30 AM RMED tetrahy result. drocann This abinol result [Presen is for ce] in medical Unspeci purpose fied s specime and/or n treatme nt only. Urinalysis dipstick W Reflex Microscopic panel in Urine Observa Value Referen Units Interpr Notes Date tion ce etation Range Appeara CLEAR CLEAR No No No Sep 7 nce of informa informa informa 2017 Urine tion in tion in tion in 2:30 AM source source source data data data Bilirub NEGATIV NEG No No No Sep 7 in E informa informa informa 2017 [Presen tion in tion in tion in 2:30 AM ce] in source source source Urine data data data by Test strip Erythro NEGATIV NEG No No No Sep 7 cytes E informa informa informa 2016 [Presen tion in tion in tion in 2:30 AM ce] in source source source Urine data data data Color YELLOW YELLOW No No No Sep 7 of informa informa informa 2017 Urine tion in tion in tion in 2:30 AM source source source data data data Glucose NEG No High No Sep 7 [Mass/vol informati informati 2017 2:30 ume] in on in on in AM Urine by source source Test data data strip Ketones NEGATIV NEG mg/dL No No Sep 7 E informa informa 2017 [Presen tion in tion in 2:30 AM ce] in source source Urine data data by Automat ed test strip Mucus NEGATIV NEG No No No Sep 7 [Presen E informa informa informa 2016 ce] in tion in tion in tion in 2:30 AM Urine source source source sedimen data data data t by Light microsc opy Nitrite NEGATIV NEG No No No Sep 7 E informa informa informa 2017 [Presen tion in tion in tion in 2:30 AM ce] in source source source Urine data data data by Test strip pH of 5.0 - 8.5 No Normal No Sep 7 Urine informati informati 2017 2:30 on in on in AM source source data data Protein NEG mg/dL No No Sep 7 [Mass/vol informati informati 2017 2:30 ume] in on in on in AM Urine by source source Automated data data test strip Specific 1.005 - No Normal No Sep 7 gravity 1.030 informati informati 2017 2:30 of Urine on in on in AM source source data data Urobili 0.2 NEG E.U./dL No No Sep 7 nogen informa informa 2017 [Presen tion in tion in 2:30 AM ce] in source source Urine data data by Test strip Cardiac enzymes Observa Value Referen Units Interpr Notes Date tion ce etation Range Creatine 0 - 4.0 U/L Normal No Sep 7 kinase.MB informati 2017 2:10 /Creatine on in AM source kinase.to data angela [Ratio] in Serum or Plasma Creatine 0.0 - 3.6 ng/mL Normal No Sep 7 kinase.MB informati 2017 2:10 on in AM [Mass/vol source ume] in data Serum or Plasma Creatine 39 - 308 U/L Normal No Sep 7 kinase informati 2017 2:10 [Enzymati on in AM c source activity/ data volume] in Serum or Plasma Troponin 0.00 - ng/mL High 0.04 - Sep 7 I.cardiac 0.06 0.49 IS 2017 2:10 AN AM [Mass/vol INDETERMI ume] in NANT Serum or ZONEAnd Plasma can be consisten t with the following diseases: Trauma Criticall y ill patients Whyte >30% TBSACHF Hypothyro idism Amyloidos isHyperte nsion Myocardit is SepsisHyp otension Rhabdomyo lysis Vital exhaust.P ostop surgery Pulmonary embolism CVARenal failure Acute neurologi otf disease Atrial fib. Lactate [Moles/volume] in Blood Observa Value Referen Units Interpr Notes Date tion ce etation Range Lactate 0.4 - 2.0 mmol/L Normal No Sep 7 [Moles/vo informati 2017 2:10 lume] in on in AM Blood source data CBC W Auto Differential panel in Blood Observa Value Referen Units Interpr Notes Date tion ce etation Range Basophils 0 - 0.2 K/MM3 High No Sep 7 informati 2017 [#/volume on in 12:30 AM ] in source Blood by data Automated count Basophils 0.1 - 2.0 % Normal No Sep 7 /100 inform 2017 leukocyte on in 12:30 AM s in source Blood by data Automated count Eosinophi 0.0 - 0.4 K/mm3 Normal No Sep 7 ls inform2016 [#/volume on in 12:30 AM ] in source Blood by data Automated count Eosinophi 0.1 - % Normal No Sep 7 ls/100 12.0 inform2016 leukocyte on in 12:30 AM s in source Blood by data Automated count Granulocy 1.3 - 8.0 K/mm3 High No Sep 7 nathan inform 2017 [#/volume on in 12:30 AM ] in source Blood by data Automated count Granulocy 37.0 - % Normal No Sep 7 nathan/100 80.0 inform2016 leukocyte on in 12:30 AM s in source Blood by data Automated count Hematocri 42.0 - % Normal No Sep 7 t [Volume 52.0 informati 2017 on in 12:30 AM Fraction] source of Blood data Hemoglobi 14.1 - g/dL Normal No Sep 7 n 18.0 inform2016 [Mass/vol on in 12:30 AM ume] in source Blood data Lymphocyt 0.7 - 4.5 K/mm3 High No Sep 7 es inform 2017 [#/volume on in 12:30 AM ] in source Unspecifi data ed specimen by Automated count Lymphocyt 10 - 50 % Normal No Sep 7 es inform 2017 [#/volume on in 12:30 AM ] in source Unspecifi data ed specimen by Automated count Erythrocy 27 - 31.2 pg Normal No Sep 7 te mean inform 2017 corpuscul on in 12:30 AM ar source hemoglobi data n [Entitic mass] Erythrocy 31.8 - g/dl Normal No Sep 7 te mean 35.4 inform 2017 corpuscul on in 12:30 AM ar source hemoglobi data n concentra tion [Mass/vol ume] by Automated count Erythrocy 82.2 - fl Normal No Sep 7 te mean 97.8 inform2016 corpuscul on in 12:30 AM ar volume source [Entitic data volume] by Automated count Monocytes 0.1 - 1.0 K/mm3 High No Sep 7 inform2016 [#/volume on in 12:30 AM ] in source Blood by data Automated count Monocytes 1.7 - 9.3 % Normal No Sep 7 /100 2016 leukocyte on in 12:30 AM s in source Blood by data Automated count Platelet 7.4 - fl Normal No Sep 7 mean 10.4 2016 volume on in 12:30 AM [Entitic source volume] data in Blood by Automated count Platelets 142 - 424 K/mm3 High No Sep 7 inform2016 [#/volume on in 12:30 AM ] in source Blood data Erythrocy 4.6 - 6.2 M/mm3 Normal No Sep 7 nathan inform2016 [#/volume on in 12:30 AM ] in source Amniotic data fluid Erythrocy 11.5 - % Normal No Sep 7 te 17.5 ati 2016 distribut on in 12:30 AM ion width source [Entitic data volume] by Automated count Leukocyte 4.8 - K/MM3 High No Sep 7 s 10.8 alert 2016 [#/volume on in 12:30 AM ] in source Blood data Differential panel, method unspecified - Observa Value Referen Units Interpr Notes Date tion ce etation Range Anisocy 1+ No No No No Sep 7 tosis informa informa informa informa 2016 [Presen tion in tion in tion in tion in 12:30 ce] in source source source source AM Blood data data data data Basophils 0 - 1 % Normal No Sep 7 /100 2016 leukocyte on in 12:30 AM s in source Blood by data Automated count LYMPH 17 10 - 50 % Normal No Sep 7 informa 2016 tion in 12:30 source AM data Monocytes 2 - 9 % Normal No Sep 7 /100 2016 leukocyte on in 12:30 AM s in source Blood by data Automated count Platele NORMAL No No No No Sep 7 ts informa informa informa informa 2016 [Presen tion in tion in tion in tion in 12:30 ce] in source source source source AM Blood data data data data by Light microsc opy Neutrophi 42 - 76 % Normal No Sep 7 ls 2016 [#/volume on in 12:30 AM ] in source Blood by data Automated count Cells No #CELLS No No Sep 7 Counted informati informati informati 2017 Total [#] on in on in on in 12:30 AM in Blood source source source data data data Erythrocyte sedimentation rate by Westergren method Observa Value Referen Units Interpr Notes Date tion ce etation Range Erythrocy 0 - 15 mm/hr Normal No Sep 7 te inform 2017 sedimenta on in 12:30 AM tion rate source by data Westergre n method Acetaminophen [Mass/volume] in Unspecified specimen Observa Value Referen Units Interpr Notes Date tion ce etation Range Acetamino 10 - 30 ug/mL Low No Sep 7 phen informati 2016 [Mass/vol on in 12:30 AM ume] in source Unspecifi data ed specimen Salicylates [Mass/volume] in Serum or Plasma Observa Value Referen Units Interpr Notes Date tion ce etation Range Salicylat 2.8 - mg/dL Normal No Sep 7 es 20.0 informati 2016 [Mass/vol on in 12:30 AM ume] in source Serum or data Plasma Comprehensive metabolic 2000 panel in Serum or Plasma Observa Value Referen Units Interpr Notes Date tion ce etation Range Albumin/G 1.1 - 1.8 No Normal No Sep 7 lobulin informati inform2016 [Mass on in on in 12:30 AM ratio] in source source Serum or data data Plasma Albumin 3.4 - 5.0 gm/dL Normal No Sep 7 [Mass/vol informati 2016 ume] in on in 12:30 AM Serum or source Plasma data Alkaline 46 - 116 U/L Normal No Sep 7 phosphata inform2016 se on in 12:30 AM [Enzymati source c data activity/ volume] in Serum or Plasma Bilirubin 0.2 - 1.0 mg/dL Low No Sep 7 .total informati 2016 [Mass/vol on in 12:30 AM ume] in source Serum or data Plasma Urea 7 - 18 mg/dL Normal No Sep 7 nitrogen informati 2016 [Mass/vol on in 12:30 AM ume] in source Serum or data Plasma Calcium 8.5 - mg/dL Normal No Sep 7 [Mass/vol 10.1 informati 2016 ume] in on in 12:30 AM Serum or source Plasma data Chloride 98 - 107 mmoL/L Normal No Sep 7 [Moles/vo informati 2016 lume] in on in 12:30 AM Serum or source Plasma data Carbon 21.0 - mmoL/L Normal No Sep 7 dioxide, 32.0 informati 2017 total on in 12:30 AM [Moles/vo source lume] in data Serum or Plasma Creatinin 0.70 - mg/dL Normal No Sep 7 e 1.30 informati 2017 [Mass/vol on in 12:30 AM ume] in source Serum or data Plasma Creatinin 50 - 200 ML/MIN Normal No Sep 7 e renal informati 2017 clearance on in 12:30 AM source predicted data by Cockcroft -Gault formula Estimated >60 ML/MIN No REFERENCE Sep 7 informati RANGE: 2017 glomerula on in >60 12:30 AM r source ML/MIN/1. filtratio data 73 SQUARE n rate METERSIf (GF this patient is -A merican, then multiply theresult by 1.210. Globulin 1.3 - 3.2 gm/dL High No Sep 7 [Mass/vol informati 2017 ume] in on in 12:30 AM Serum source data Glucose 74 - 106 mg/dL High No Sep 7 [Mass/vol informati 2017 ume] in on in 12:30 AM Serum or source Plasma data Potassium 3.5 - 5.1 mmoL/L Normal No Sep 7 informati 2017 [Moles/vo on in 12:30 AM lume] in source Serum or data Plasma Sodium 136 - 145 mmoL/L Normal No Sep 7 [Moles/vo informati 2017 lume] in on in 12:30 AM Serum or source Plasma data Aspartate 15 - 37 U/L Normal No Sep 7 informati 2017 aminotran on in 12:30 AM sferase source [Enzymati data c activity/ volume] in Serum or Plasma Alanine 12 - 78 U/L Normal No Sep 7 aminotran informati 2017 sferase on in 12:30 AM [Enzymati source c data activity/ volume] in Serum or Plasma Protein 6.4 - 8.2 gm/dL High No Sep 7 [Mass/vol informati 2017 ume] in on in 12:30 AM Serum or source Plasma data Ethanol [Mass/volume] in Serum or Plasma Observa Value Referen Units Interpr Notes Date tion ce etation Range Ethanol 0 - 99 mg/dL Normal ANY Sep 7 [Mass/vol ALCOHOL > 2017 ume] in OR = 80 12:30 AM Serum or MG/DL IS Plasma CONSIDERE D LEGALLYIN TOXICATED UNDER [facility] LAW.
--- OUTSIDE RECORDS SUMMARY | 2017-07-01 02:39 | External Medical Summary Rpt ---
Author Author [employer], [employer] Organization [employer] Address [...] IS Plasma CONSIDERE D LEGALLYIN TOXICATED UNDER [facility] LAW.
== END 2017-06-21 09:40 | disposition home or self-care (01) ==
LOC: ER 05:50
PROVIDERS: Emergency Medicine
PROC: 2W3LX1Z Immobilization of Right Lower Extremity using Splint (ICD-10-PCS; principal; 2017-06-21)
DX: S92.254A Nondisplaced fracture of navicular [scaphoid] of right foot, initial encounter for closed fracture (principal); S83.91XA Sprain of unspecified site of right knee, initial encounter; S32.019A Unspecified fracture of first lumbar vertebra, initial encounter for closed fracture; S32.029A Unspecified fracture of second lumbar vertebra, initial encounter for closed fracture; V28.0XXA Motorcycle driver injured in noncollision transport accident in nontraffic accident, initial encounter; Y92.488 Other paved roadways as the place of occurrence of the external cause; F17.210 Nicotine dependence, cigarettes, uncomplicated

== ENCOUNTER → 2017-06-30 | Outpatient (CLI) | payer MEDICAID ==
[~2017-06-30] MED LIST changes: +NORCO 325 MG-51 TAB PO
--- NOTE | 2017-07-01 13:39 | RADIOLOGY REPORT PS360 ---
CT EXT.LOWER-RT-W/O CONTRAST INDICATION: Pain following injury NON DISPLACED NAVICULAR FX,R/O CALCANEAL FX ORDERING PHYSICIAN: CALISTA KELSEY DPM PATIENT AGE: 41 years COMPARISON: Radiograph of 06-06 TECHNIQUE: Axial images are obtained without contrast. Sagittal, coronal, and 3-D reformatted images are reviewed as well. FINDINGS: No obvious fracture or dislocation is evident. Specifically, the navicular, and calcaneus have an unremarkable appearance. No lytic or blastic change. There is some mild stranding in the subcutaneous soft tissues along the calcaneus. No obvious abscess or radiopaque foreign body. IMPRESSION: No acute fracture. If pain persists, MRI may be of further value
== END ==
LOC: RAD 06-29 14:30
DX: S92.255A Nondisplaced fracture of navicular [scaphoid] of left foot, initial encounter for closed fracture (principal); M79.671 Pain in right foot

== ENCOUNTER → 2017-07-29 | Outpatient (CLI) | payer MEDICAID ==
--- NOTE | 2017-07-29 14:50 | RADIOLOGY REPORT PS360 ---
KNEE-4 OR 5 VIEWS-RT HISTORY: RT KNEE PAIN ORDERING PHYSICIAN: ALEXANDER ASHLEY MD PATIENT AGE: 41 years COMPARISON: None FINDINGS: Weightbearing views are performed No fracture or dislocation. No lytic or blastic change. Normal mineralization. No significant arthritic changes evident. No other significant findings IMPRESSION: Negative Knee
== END ==
LOC: RAD 14:18
DX: M25.561 Pain in right knee (principal)